=== PATIENT | female | born 1955 | race Caucasian/White ===

== ENCOUNTER 2019-08-11 08:48 | Outpatient (CLI) | payer OTHER, SELFPAY ==
--- NOTE | ~2019-08-11 | US_ITS ---
US breast RT limited 08/11/2019 09:28 Indication: Follow-up left breast mass Procedure: High-resolution left breast ultrasound Comparison: Ultrasound dated 02/09/2019 and 02/03/2019 Findings: At 6:00, 1 cm from the nipple, there is a 3 x 2 x 1 mm hypoechoic mass with circumscribed m argins, parallel orientation, no internal vascularity and no posterior features. This is slightly dec reased in size compared with 02/03/2019 when it measured 4 x 3 x 2 mm. Impression: 1: Slightly decreased size of likely benign right breast mass measuring 3 mm maximum dimension at 6:0 0, 1 cm from the nipple. BI-RADS CATEGORY 3-PROBABLY BENIGN FINDING RECOMMENDATION: Six-month follow-up diagnostic bilateral mammogram and right breast ultrasound recomm ended. Reviewed, dictated and finalized at location [facility]. 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 BI-RADS CATEGORY 3-PROBABLY BENIGN FINDING RECOMMENDATION: Six-month follow-up diagnostic bilateral mammogram and right br east ultrasound recommended.
== END 2019-08-11 08:49 | disposition home or self-care (01) ==
LOC: CHSIMG 08:50
PROVIDERS: PCP Internal Medicine; Visit Provider Internal Medicine
DX: R92.8 Other abnormal and inconclusive findings on diagnostic imaging of breast (principal)
CPT/HCPCS: 76642

== ENCOUNTER 2019-10-15 07:47 | Outpatient (CLI) | payer MEDICARE, OTHER, SELFPAY ==
[2019-10-15 08:02] LABS: Basophils Absolute Auto 0.07 K/mm3 (0.00-0.10); Basophils Percent Auto 1.3 % (0.0-1.0); Eosinophils Absolute Auto 0.38 K/mm3 (0.02-0.50); Eosinophils Percent Auto 6.9 % (1.0-6.0); Hematocrit 40.6 % (35.0-42.0); Hemoglobin 13.3 g/dL (11.7-13.8); Immature Granulocyte Absolute 0.01 K/mm3 (0.00-0.00); Immature Granulocyte Percent A 0.2 % (0.0-0.0); Lymphocytes Absolute Auto 2.39 K/mm3 (1.10-4.50); Lymphocytes Percent Auto 43.3 % (18.0-42.0); Mean Corpuscular HGB Conc 32.8 g/dL (32.0-36.0); Mean Corpuscular Hemoglobin 28.9 pg (27.0-31.0); Mean Corpuscular Volume 88.1 fL (78.0-102.0); Mean Platelet Volume 10.7 fl (9.2-11.8); Monocytes Absolute Auto 0.52 K/mm3 (0.10-0.90); Monocytes Percent Auto 9.4 % (2.0-11.0); Neutrophils Absolute Auto 2.2 K/mm3 (1.7-7.2); Neutrophils Percent Auto 38.9 % (50.0-70.0); Platelet Count Result 231 K/mm3 (150-420); Red Blood Count 4.61 M/mm3 (4.20-5.40); White Blood Count 5.5 K/mm3 (4.8-10.8)
[2019-10-15 08:03] LABS: Add Urine Microscopic? NO; Appearance Urine Clear (Clear); Bilirubin Urine Negative (Negative); Blood Urine Negative (Negative); Color Urine Yellow (Yellow); Glucose Urine UA Negative (Negative); Ketones Urine Negative (Negative); Leukocyte Esterase Ur Negative (Negative); Nitrate Urine Negative (Negative); Protein Urine Negative (Negative); Urobilinogen Urine 0.2 mg/dL (0.2-1.0)
[2019-10-15 08:59] LABS: Alanine Aminotransferase 32 U/L (14-59); Albumin Level 4.1 g/dL (3.4-5.0); Alkaline Phosphatase 114 U/L (46-116); Anion Gap 12.2 mmol/L (7-16); Aspartate Amino Transferase 28 U/L (15-37); Bilirubin,Total 0.4 mg/dL (0.00-1.00); Blood Urea Nitrogen 11 mg/dL (7-18); Calcium 9.2 mg/dL (8.5-10.1); Carbon Dioxide 30 mmol/L (21-32); Chloride 105 mmol/L (98-108); Cholesterol 185 mg/dL (0-200); Estimated Glomerular Filt Rate > 60; Glucose 95 mg/dL (70-99); HDL Direct 49 mg/dL (40-60); LDL Cholesterol Calculated 98 mg/dL (<130); Osmolality Calculated 295 mOsm/kg (285-295); Potassium 4.2 mmol/L (3.5-5.1); Sodium 143 mmol/L (136-145); Thyroid Stimulating Hormone 1.03 uIU/mL (0.36-3.74); Total Protein 7.3 g/dL (6.4-8.2); Triglycerides 188 mg/dL (0-150)
== END 2019-10-15 07:48 | disposition home or self-care (01) ==
LOC: CHSLAB 07:50
PROVIDERS: PCP Internal Medicine; Visit Provider Internal Medicine
DX: E78.5 Hyperlipidemia, unspecified (principal); M19.90 Unspecified osteoarthritis, unspecified site; E03.9 Hypothyroidism, unspecified
CPT/HCPCS: 36415; 80053; 80061; 81003; 84443; 85025

== ENCOUNTER 2020-02-06 15:57 | Outpatient (CLI) | payer MEDICARE, SELFPAY ==
[2020-02-06 16:08] LABS: Basophils Absolute Auto 0.07 K/mm3 (0.00-0.10); Basophils Percent Auto 1.1 % (0.0-1.0); Eosinophils Absolute Auto 0.29 K/mm3 (0.02-0.50); Eosinophils Percent Auto 4.4 % (1.0-6.0); Hematocrit 40.2 % (35.0-42.0); Hemoglobin 13.3 g/dL (11.7-13.8); Immature Granulocyte Absolute 0.03 K/mm3 (0.00-0.00); Immature Granulocyte Percent A 0.5 % (0.0-0.0); Lymphocytes Absolute Auto 2.94 K/mm3 (1.10-4.50); Lymphocytes Percent Auto 44.9 % (18.0-42.0); Mean Corpuscular HGB Conc 33.1 g/dL (32.0-36.0); Mean Corpuscular Volume 87.8 fL (78.0-102.0); Mean Platelet Volume 10.9 fl (9.2-11.8); Monocytes Absolute Auto 0.57 K/mm3 (0.10-0.90); Monocytes Percent Auto 8.7 % (2.0-11.0); Neutrophils Absolute Auto 2.7 K/mm3 (1.7-7.2); Neutrophils Percent Auto 40.4 % (50.0-70.0); Platelet Count Result 224 K/mm3 (150-420); Red Blood Count 4.58 M/mm3 (4.20-5.40); Red Cell Distribution Width 11.9 % (11.6-14.4); White Blood Count 6.6 K/mm3 (4.8-10.8)
[2020-02-06 16:29] LABS: Alanine Aminotransferase 39 U/L (14-59); Albumin Level 4.5 g/dL (3.4-5.0); Alkaline Phosphatase 124 U/L (46-116); Anion Gap 10 mmol/L (8-16); Aspartate Amino Transferase 29 U/L (15-37); Bilirubin,Total 0.3 mg/dL (0.00-1.00); Blood Urea Nitrogen 12 mg/dL (7-18); Calcium 9.2 mg/dL (8.5-10.1); Carbon Dioxide 29 mmol/L (21-32); Chloride 103 mmol/L (98-108); Estimated Glomerular Filt Rate 58; Glucose 108 mg/dL (70-99); Osmolality Calculated 294 mOsm/kg (285-295); Potassium 3.9 mmol/L (3.5-5.1); Sodium 142 mmol/L (136-145); Total Protein 7.9 g/dL (6.4-8.2)
== END 2020-02-06 15:58 | disposition home or self-care (01) ==
LOC: CHSLAB 15:59
PROVIDERS: PCP Internal Medicine; Visit Provider Internal Medicine
DX: R21 Rash and other nonspecific skin eruption (principal); D72.820 Lymphocytosis (symptomatic)
CPT/HCPCS: 36415; 80053; 85025

== ENCOUNTER 2020-09-13 12:15 | Outpatient (CLI) | payer MEDICARE, SELFPAY ==
[2020-09-13 12:30] LABS: Basophils Absolute Auto 0.06 K/mm3 (0.00-0.10); Basophils Percent Auto 0.9 % (0.0-1.0); Eosinophils Absolute Auto 0.14 K/mm3 (0.02-0.50); Eosinophils Percent Auto 2.1 % (1.0-6.0); Hematocrit 41.1 % (35.0-42.0); Hemoglobin 13.7 g/dL (11.7-13.8); Immature Granulocyte Absolute 0.04 K/mm3 (0.00-0.00); Immature Granulocyte Percent A 0.6 % (0.0-0.0); Lymphocytes Absolute Auto 2.78 K/mm3 (1.10-4.50); Lymphocytes Percent Auto 41.4 % (18.0-42.0); Mean Corpuscular HGB Conc 33.3 g/dL (32.0-36.0); Mean Corpuscular Hemoglobin 29.3 pg (27.0-31.0); Mean Platelet Volume 10.7 fl (9.2-11.8); Monocytes Percent Auto 8.9 % (2.0-11.0); Neutrophils Absolute Auto 3.1 K/mm3 (1.7-7.2); Neutrophils Percent Auto 46.1 % (50.0-70.0); Platelet Count Result 228 K/mm3 (150-420); Red Blood Count 4.67 M/mm3 (4.20-5.40); Red Cell Distribution Width 12.2 % (11.6-14.4); White Blood Count 6.7 K/mm3 (4.8-10.8)
[2020-09-13 12:32] LABS: Add Urine Microscopic? NO; Appearance Urine Clear (Clear); Bilirubin Urine Negative (Negative); Blood Urine Negative (Negative); Color Urine Yellow (Yellow); Glucose Urine UA Negative (Negative); Ketones Urine Negative (Negative); Leukocyte Esterase Ur Negative (Negative); Nitrate Urine Negative (Negative); Protein Urine Negative (Negative); Specific Grav Ur <= 1.005 (1.010-1.020); Urobilinogen Urine 0.2 mg/dL (0.2-1.0)
--- NOTE | 2020-09-13 12:50 | ECG_ITS ---
Measurements Intervals [place] Rate: 53 P: 77 VA: 188 QRS: 82 QRSD: 89 T: 57 QT: 403 QTc: 381 Interpretive Statements SINUS BRADYCARDIA MINIMAL Q WAVES- INFERIOR LEADS BORDERLINE ST-T WAVE ABNORMALITY- DIFFUSE LEADS BORDERLINE ECG Electronically Signed On 09-13-2020 13:42:32 CDT by Trevor Apple D.O.
[2020-09-13 12:57] LABS: Alanine Aminotransferase 50 U/L (14-59); Albumin Level 4.6 g/dL (3.4-5.0); Alkaline Phosphatase 125 U/L (46-116); Amylase 54 U/L (25-115); Anion Gap 6 mmol/L (8-16); Aspartate Amino Transferase 32 U/L (15-37); Bilirubin,Total 0.6 mg/dL (0.00-1.00); Blood Urea Nitrogen 9 mg/dL (7-18); Calcium 10.3 mg/dL (8.5-10.1); Carbon Dioxide 30 mmol/L (21-32); Chloride 101 mmol/L (98-108); Creatine Kinase 166 U/L (26-192); Estimated Glomerular Filt Rate > 60; Glucose 109 mg/dL (70-99); Lipase 135 U/L (73-393); Osmolality Calculated 283 mOsm/kg (285-295); Potassium 3.9 mmol/L (3.5-5.1); Sodium 137 mmol/L (136-145); Total Protein 8.3 g/dL (6.4-8.2); Troponin I 6.8 ng/L (0.00-60.4)
== END 2020-09-13 12:16 | disposition home or self-care (01) ==
LOC: CHSLAB 12:18
PROVIDERS: PCP Internal Medicine; Visit Provider Internal Medicine
DX: R10.9 Unspecified abdominal pain (principal); E03.9 Hypothyroidism, unspecified
CPT/HCPCS: 36415; 80053; 81003; 82150; 82550; 82553; 83690; 84443; 84484; 85025; 93005

== ENCOUNTER 2020-09-14 11:37 | Outpatient (CLI) | payer MEDICARE, SELFPAY ==
[2020-09-17 05:55] LABS: Ionized Calcium 5.3 mg/dL (4.8-5.6)
[2020-09-17 11:14] LABS: Parathyroid Intact 49 pg/mL (14-64)
== END 2020-09-14 11:38 | disposition home or self-care (01) ==
LOC: CHSLAB 11:40
PROVIDERS: PCP Internal Medicine; Visit Provider Internal Medicine
DX: E83.52 Hypercalcemia (principal)
CPT/HCPCS: 36415; 82330; 83970; 84100

== ENCOUNTER 2020-10-18 09:25 | Outpatient (CLI) | payer MEDICARE, SELFPAY ==
[2020-10-18 09:35] LABS: Basophils Absolute Auto 0.06 K/mm3 (0.00-0.10); Basophils Percent Auto 1.2 % (0.0-1.0); Eosinophils Absolute Auto 0.24 K/mm3 (0.02-0.50); Eosinophils Percent Auto 4.7 % (1.0-6.0); Hematocrit 39.5 % (35.0-42.0); Hemoglobin 13.3 g/dL (11.7-13.8); Immature Granulocyte Absolute 0.01 K/mm3 (0.00-0.00); Immature Granulocyte Percent A 0.2 % (0.0-0.0); Lymphocytes Absolute Auto 1.96 K/mm3 (1.10-4.50); Lymphocytes Percent Auto 38.7 % (18.0-42.0); Mean Corpuscular HGB Conc 33.7 g/dL (32.0-36.0); Mean Corpuscular Hemoglobin 29.2 pg (27.0-31.0); Mean Corpuscular Volume 86.8 fL (78.0-102.0); Mean Platelet Volume 10.8 fl (9.2-11.8); Monocytes Absolute Auto 0.46 K/mm3 (0.10-0.90); Monocytes Percent Auto 9.1 % (2.0-11.0); Neutrophils Absolute Auto 2.3 K/mm3 (1.7-7.2); Neutrophils Percent Auto 46.1 % (50.0-70.0); Platelet Count Result 228 K/mm3 (150-420); Red Blood Count 4.55 M/mm3 (4.20-5.40); White Blood Count 5.1 K/mm3 (4.8-10.8)
[2020-10-18 10:30] LABS: Alanine Aminotransferase 36 U/L (14-59); Albumin Level 4.1 g/dL (3.4-5.0); Alkaline Phosphatase 126 U/L (46-116); Amylase 44 U/L (25-115); Anion Gap 6 mmol/L (8-16); Aspartate Amino Transferase 24 U/L (15-37); Bilirubin,Total 0.4 mg/dL (0.00-1.00); Blood Urea Nitrogen 12 mg/dL (7-18); Calcium 9.5 mg/dL (8.5-10.1); Carbon Dioxide 30 mmol/L (21-32); Chloride 104 mmol/L (98-108); Estimated Glomerular Filt Rate > 60; Glucose 104 mg/dL (70-99); Lipase 96 U/L (73-393); Osmolality Calculated 289 mOsm/kg (285-295); Sodium 140 mmol/L (136-145); Thyroid Stimulating Hormone 0.52 uIU/mL (0.36-3.74); Total Protein 7.3 g/dL (6.4-8.2)
== END 2020-10-18 09:26 | disposition home or self-care (01) ==
LOC: CHSLAB 09:28
PROVIDERS: PCP Internal Medicine; Visit Provider Internal Medicine
DX: R10.9 Unspecified abdominal pain (principal); E03.9 Hypothyroidism, unspecified
CPT/HCPCS: 36415; 80053; 82150; 83690; 84443; 85025

== ENCOUNTER 2020-10-19 08:29 | Outpatient (CLI) | payer MEDICARE, SELFPAY ==
--- NOTE | ~2020-10-19 | CT_ITS ---
EXAMINATION: CT abdomen pelvis w con DATE: 10/19/2020 09:48 INDICATION: Epigastric abdominal pain for 2 months TECHNIQUE: Computed tomography (CT) of the abdomen and pelvis was performed with 100 cc Omnipaque 350 intravenous contrast. Automated exposure control and iterative reconstruction technique were employe d. Exam dose: 283.52 mGy-cm total exam DLP. COMPARISON: 03/17/2019 radionuclide hepatobiliary scan 03/10/2019 gallbladder ultrasound 08/22/2016 CT abdomen pelvis FINDINGS: There are several posteromedial right lower lobe pleura-based soft tissue densities measuri ng under 4 mm. There is a pleural-based 1.5 cm nodular density with central calcification in the posterior basilar r ight lower lobe, likely a calcified pulmonary granuloma. There is branching soft tissue thickening in the posteromedial left lower lobe which may represent fo antonio bronchiectasis with inspissated secretions. The lower lung zones are otherwise clear. Normal heart size. No pericardial or pleural effusion. Very small sliding hiatal hernia. Diffuse hepatic steatosis. Status post cholecystectomy. No hepatic, splenic, pancreatic, adrenal or renal space-occupying mass lesion is detected. Normal caliber of the abdominal aorta. No intraperitoneal or retroperitoneal or pelvic mass lesion or adenopathy or ascites. The urinary bladder is unremarkable. Status post hysterectomy. Normal appendix. There is a prominent amount fecal material within the colon but no bowel obstruction, bowel wall thic kening, pneumatosis or intraperitoneal free air is detected. Diffuse osteopenia. Mild anterior wedge compression fracture deformity of L1. Moderate anterior wedge compression fractur e deformity of L3. Minimal grade 1 anterolisthesis at L4-5 due to degenerative change at the apophyseal joints. IMPRESSION: Focal inspissated bronchiectasis, left lower lobe Probable 1.5 cm centrally calcified right lower lobe pulmonary granuloma Very small sliding hiatal hernia Hepatic steatosis Status post cholecystectomy Status post hysterectomy Normal appendix Compression fracture deformities of L1 and L3, stable since 08/22/2016 Reviewed, dictated and finalized at [facility]. Reviewed, dictated and finalized at location A.
== END 2020-10-19 08:30 | disposition home or self-care (01) ==
LOC: CHSIMG 08:31
PROVIDERS: PCP Internal Medicine; Visit Provider Internal Medicine
DX: R10.9 Unspecified abdominal pain (principal)
CPT/HCPCS: 74177; Q9967

== ENCOUNTER 2021-01-17 02:39 | Day surgery (SDC) | payer MEDICARE, SELFPAY ==
[2021-01-04 13:43] VITALS: BMI 25.4
[2021-01-17 07:14] VITALS: BP 151/78; PULSE 78; RESP 18; TEMP 36.1; O2SAT 99; BMI 26.4
[2021-01-17] MEDS: LACTATED RINGERS 1,000 ML 150 ML IV CONT (07:30)
--- NOTE | 2021-01-17 07:55 | WPDANESEPPF ---
Anes - Initial Pre Proc Eval Procedure: Operation Date: 01/17/21 08:30 Proposed Procedures p Esophagogastroduodenoscopy - Hugo Cortes DO Date/Time: 01/17/21 07:55 Surgeon: Hugo Cortes DO Pre Op Diagnosis: epigastric pain Patient Data Age: 65 Gender: F Height: 1.52 m Weight: 61.4 kg Last Vital Signs Temp 36.1 C L 01/17/21 07:14 Pulse 78 01/17/21 07:14 Resp 18 01/17/21 07:14 BP 151/78 H 01/17/21 07:14 Pulse Ox 99 01/17/21 07:14 Allergies Allergy/AdvReac Type Severity Reaction Status Date / Time risedronate sodium Allergy Rash Verified 01/17/21 07:05 [From Actonel] Home Medications Medication Instructions Recorded Confirmed Type ascorbic acid (vitamin C) 500 mg 500 mg PO DAILY 04/11/19 01/17/21 History tablet levothyroxine 88 mcg capsule 88 mcg PO HS 04/11/19 01/17/21 History meloxicam 15 mg tablet 15 mg PO DAILY PRN 04/11/19 01/17/21 History pantoprazole 40 mg tablet,delayed 40 mg PO QAM PRN 04/11/19 01/17/21 History release propylene glycol 0.6 % eye drops 1 drop EACH EYE HS 04/11/19 01/17/21 History calcium carbonate 600 mg calcium 600 mg PO DAILY 04/12/19 01/17/21 History (1,500 mg) tablet pravastatin 10 mg tablet 10 mg PO DAILY 04/12/19 01/17/21 History multivitamin 1 tablet PO DAILY 04/26/19 01/17/21 History vitamin E 400 unit PO DAILY 04/26/19 01/17/21 History Patient hx anesthesia problems: none Family hx anesthesia problems: none PMFSH Past Medical History Medical History B12 deficiency Cervical radiculitis right Corneal abrasion right Disorder of thyroid gland Hypertriglyceridemia Hypothyroidism Osteoporosis Surgical History Surgical History H/O section H/O colonoscopy H/O: hysterectomy Hx of tonsillectomy Family History Family History Mother Family history of elevated blood lipids Family history of atrial fibrillation Hyperlipidemia Atrial fibrillation Unknown Leukemia Other Diabetes mellitus Family history of malignant neoplasm Social History Social History Smoking status: Former smoker Tobacco type: cigarettes Second hand tobacco smoke exposure: No Smoking end date: 06/08/09 Alcohol intake: never Alcohol use details: 1 glass of consumed rarely Substance use: never Substance use type: does not use Living arrangements: alone Spiritual care concerns: No Anes - Eval Final PreProcedure Day of Procedure 01/17/21 07:55 Patient weight: overweight Heart: regular rate and rhythm Lungs: clear to auscultation Airway: Mallampati scale class II Neurological: alert and oriented Last oral intake: >/= 8 hours ASA classification: II Emergent: no Anesthetic plan: proceed Anesthesia type and monitoring: general GIVS and standard monitoring Informed Consent: The patient's anesthetic plan and its attendant risks and benefits were discussed with the patient/family/POA. Questions were solicited and answers provided to the satisfaction of the patient/family/POA.
--- NOTE | 2021-01-17 08:59 | PM.IMHP ---
H&P: HPI History of Present Illness Date/Time: 01/17/21 08:59 Chief Complaint: upper abdominal pain Narrative: this is a 65-year-old woman who presents with upper abdominal pain and pressure for the past 6 months. She denies any nausea or vomiting. She did recently start taking an antihistamine which she feels like has improved her symptoms. Prior to that, nothing seemed to be helping, even with taking pantoprazole. Review of Systems Review of Systems: All systems reviewed & are unremarkable except as noted in HPI and below Eyes: Eyes: Denies change in vision ENT: Denies hearing loss, Denies neck pain and Denies sore throat Cardiovascular: Cardiovascular: Denies chest pain and Denies dyspnea Respiratory: Respiratory: Denies cough, Denies dyspnea and Denies wheezing Genitourinary: Genitourinary: Denies hematuria and Denies dysuria Musculoskeletal: Musculoskeletal: Denies arthralgias, Denies joint swelling and Denies neck pain Allergic/Immunologic: Allergic/Immunologic: Denies wheezing [facility] Past Medical History Medical History (Updated 01/17/21 @ 09:00 by Hugo Cortes DO) B12 deficiency Cervical radiculitis right Corneal abrasion right Disorder of thyroid gland Hypertriglyceridemia Hypothyroidism Osteoporosis Surgical History Surgical History H/O section H/O colonoscopy H/O: hysterectomy Hx of tonsillectomy Family History Family History Mother Family history of elevated blood lipids Family history of atrial fibrillation Hyperlipidemia Atrial fibrillation Unknown Leukemia Other Diabetes mellitus Family history of malignant neoplasm Social History Social History Smoking status: Former smoker Tobacco type: cigarettes Second hand tobacco smoke exposure: No Smoking end date: 06/08/09 Alcohol intake: never Alcohol use details: 1 glass of consumed rarely Substance use: never Substance use type: does not use Living arrangements: alone Spiritual care concerns: No Meds Home Medications and Allergies Home Medications Medication Instructions Recorded Confirmed Type ascorbic acid (vitamin C) 500 mg 500 mg PO DAILY 04/11/19 01/17/21 History tablet levothyroxine 88 mcg capsule 88 mcg PO HS 04/11/19 01/17/21 History meloxicam 15 mg tablet 15 mg PO DAILY PRN 04/11/19 01/17/21 History pantoprazole 40 mg tablet,delayed 40 mg PO QAM PRN 04/11/19 01/17/21 History release propylene glycol 0.6 % eye drops 1 drop EACH EYE HS 04/11/19 01/17/21 History calcium carbonate 600 mg calcium 600 mg PO DAILY 04/12/19 01/17/21 History (1,500 mg) tablet pravastatin 10 mg tablet 10 mg PO DAILY 04/12/19 01/17/21 History multivitamin 1 tablet PO DAILY 04/26/19 01/17/21 History vitamin E 400 unit PO DAILY 04/26/19 01/17/21 History Allergies Allergy/AdvReac Type Severity Reaction Status Date / Time risedronate sodium Allergy Rash Verified 01/17/21 07:05 [From Actonel] Vital Signs Vital Signs - 24 hr 01/17/21 07:14 Temperature 36.1 C L Pulse Rate 78 Respiratory Rate 18 Blood Pressure 151/78 H Pulse Oximetry 99 Exam Const: General: alert; No acute distress Orientation/consciousness: patient oriented x3 Limitations: no limitations HENMT: Head: normocephalic and atraumatic Ears: hearing grossly normal bilaterally General nose exam: Normal external nose present and Normal nares present Mouth: Yes Normal oral and palatal mucosa present and Yes moist mucous membranes Eyes: General: appearance normal, both eyes and all related structures Conjunctivae: conjunctivae normal Sclera: sclerae normal Pupils: Equal, round and reactive pupils present EOM: EOMs intact bilaterally Neck: Neck: normal visual inspection, full ROM, no lymphadenopathy, supple and no JVD Lymphatic: no lymphad
[2021-01-17] MEDS: BENZOCAINE (*SP) 60 ML SPRAY CAN (HURRICAINE) 1 SPRAY MUCOUS MEM (09:02)
[2021-01-17 09:12] VITALS: BP 115/68; PULSE 68; RESP 18; O2SAT 99
[2021-01-17 09:22] VITALS: BP 107/67; PULSE 62; RESP 20; O2SAT 99
[2021-01-17 09:32] VITALS: BP 130/80; PULSE 66; RESP 20; O2SAT 99
== END 2021-01-17 09:50 | disposition home or self-care (01) ==
PROVIDERS: PCP Internal Medicine; Visit Provider Surgery
PROC: 0DJ08ZZ Inspection of Upper Intestinal Tract, Via Natural or Artificial Opening Endoscopic (ICD-10-PCS; CPT 43235; principal; 2021-01-17 08:30)
DX: R10.13 Epigastric pain (principal); K31.89 Other diseases of stomach and duodenum; E03.9 Hypothyroidism, unspecified; E78.1 Pure hyperglyceridemia; M81.0 Age-related osteoporosis without current pathological fracture; E53.8 Deficiency of other specified B group vitamins; E07.9 Disorder of thyroid, unspecified; Z87.891 Personal history of nicotine dependence
CPT/HCPCS: 43239; 88305; J2704; J7120

== ENCOUNTER 2021-10-24 07:59 | Outpatient (CLI) | payer MEDICARE, SELFPAY ==
[2021-10-24 08:20] LABS: Add Urine Microscopic? NO; Appearance Urine Clear (Clear); Basophils Absolute Auto 0.07 K/mm3 (0.00-0.10); Basophils Percent Auto 1.4 % (0.0-1.0); Bilirubin Urine Negative (Negative); Blood Urine Negative (Negative); Color Urine Yellow (Yellow); Eosinophils Absolute Auto 0.29 K/mm3 (0.02-0.50); Eosinophils Percent Auto 5.8 % (1.0-6.0); Glucose Urine UA Negative (Negative); Hematocrit 40.7 % (35.0-42.0); Hemoglobin 13.5 g/dL (11.7-13.8); Immature Granulocyte Absolute 0.02 K/mm3 (0.00-0.00); Immature Granulocyte Percent A 0.4 % (0.0-0.0); Ketones Urine Negative (Negative); Leukocyte Esterase Ur Negative (Negative); Lymphocytes Absolute Auto 2.15 K/mm3 (1.10-4.50); Lymphocytes Percent Auto 43.2 % (18.0-42.0); Mean Corpuscular HGB Conc 33.2 g/dL (32.0-36.0); Mean Corpuscular Hemoglobin 29.5 pg (27.0-31.0); Mean Corpuscular Volume 89.1 fL (78.0-102.0); Monocytes Absolute Auto 0.44 K/mm3 (0.10-0.90); Monocytes Percent Auto 8.8 % (2.0-11.0); Neutrophils Percent Auto 40.4 % (50.0-70.0); Nitrate Urine Negative (Negative); Platelet Count Result 227 K/mm3 (150-420); Protein Urine Negative (Negative); Red Blood Count 4.57 M/mm3 (4.20-5.40); Urobilinogen Urine 0.2 mg/dL (0.2-1.0); pH Urine 5.5 (5.0-8.0)
[2021-10-24 08:58] LABS: Alanine Aminotransferase 31 U/L (14-59); Alkaline Phosphatase 118 U/L (46-116); Anion Gap 3 mmol/L (8-16); Aspartate Amino Transferase 17 U/L (15-37); Bilirubin,Total 0.4 mg/dL (0.00-1.00); Blood Urea Nitrogen 14 mg/dL (7-18); Calcium 9.2 mg/dL (8.5-10.1); Carbon Dioxide 31 mmol/L (21-32); Chloride 106 mmol/L (98-108); Cholesterol 177 mg/dL (0-200); Estimated Glomerular Filt Rate > 60; Glucose 97 mg/dL (70-99); HDL Direct 45 mg/dL (40-60); LDL Cholesterol Calculated 72 mg/dL (<130); Osmolality Calculated 290 mOsm/kg (285-295); Potassium 4.2 mmol/L (3.5-5.1); Sodium 140 mmol/L (136-145); Thyroid Stimulating Hormone 0.38 uIU/mL (0.36-3.74); Total Protein 7.4 g/dL (6.4-8.2); Triglycerides 302 mg/dL (0-150)
== END 2021-10-24 08:00 | disposition home or self-care (01) ==
PROVIDERS: PCP Internal Medicine; Visit Provider Internal Medicine
DX: E63.9 Nutritional deficiency, unspecified (principal); E78.5 Hyperlipidemia, unspecified
CPT/HCPCS: 36415; 80053; 80061; 81003; 84443; 85025

== ENCOUNTER 2021-11-07 08:17 | Outpatient (CLI) | payer MEDICARE, SELFPAY ==
--- NOTE | ~2021-11-07 | MMUS_ITS ---
EXAMINATION: MM diagnostic tung BI w chilo, US breast RT limited HISTORY: Likely benign right breast mass measuring 3 mm maximal dimension reported at 6:00 1 cm from nipple on 08/11/2019 limited right breast ultrasound TECHNIQUE: ML, MLO and CC 3-D tomosynthesis images of both breasts were performed and synthetic 2-D i mages were generated. CAD analysis was submitted and interpreted. High resolution targeted 6:00 left breast ultrasound was performed. COMPARISON: 08/11/2019 limited right breast ultrasound 02/09/2019 right breast ultrasound 01/2019 diagnostic right mammogram and right breast ultrasound 01/31/2019 bilateral screening mammogram BREAST PARENCHYMAL COMPOSITION: There are scattered areas of fibroglandular density. FINDINGS: MAMMOGRAPHIC FINDINGS: Stable small low-density circumscribed opacities consistent with benign intramammary lymph nodes are noted in the outer mid and outer upper right breast. No suspicious mass, architectural distortion, malignant calcification, skin thickening or retraction or significant new or developing density of either breast is detected. ULTRASOUND: Stable circumscribed parallel hypoechoic approximately 1.4 x 3 mm mass at 6:00 1 cm from the nipple, stable since 08/11/2019. IMPRESSION: 1. No mammographic evidence of malignancy 2. Routine mammographic screening is recommended BI-RADS Category 2: Benign finding(s). Reviewed, dictated and finalized at location A. IMPRESSION: 1. No mammographic evidence of malignancy 2. Routine mammographic screening is recommended BI-RADS Category 2: Benign finding(s).
--- NOTE | ~2021-11-07 | DEXA_ITS ---
Bone Density Report Name: CINTHIA WARREN Age: 66 Sex: Female Ethnicity: White Date of : 1955 Indication: postmenopausal; screening for osteoporosis; prior fracture; hysterectomy; Referring Provider: Torey Xiong Study: Bone densitometry was performed. Exam Date: November 07, 2021 Accession number: [id number] Bone Density: Region BMD T-score Z-score Classification AP Spine(L1-L4) 0.757 -2.6 -0.7 Osteoporosis Femoral Neck (Left) 0.413 -3.9 -2.3 Osteoporosis Total Hip (Left) 0.632 -2.5 -1.2 Osteoporosis Femoral Neck (Right) 0.498 -3.2 -1.5 Osteoporosis Total Hip (Right) 0.641 -2.5 -1.1 Osteoporosis Femoral Neck Mean 0.455 -3.5 -1.9 Osteoporosis Total Hip Mean 0.636 -2.5 -1.2 Osteoporosis World Health Organization criteria for BMD impression classify patients as: Normal (T-score at or above -1.0), Osteopenia (T-score between -1.0 and -2.5), or Osteoporosis (T-score at or below -2.5). 10-year Fracture Risk: FRAX not reported because: Some T-score for Spine Total or Hip Total or Femoral Neck at or below -2.5 Prior hip or vertebral fracture Clinical Information Provided by Patient: Have had a previous hip or vertebral fracture Has had a low trauma fracture Has used the following medications: Actonel (i.e. risedronate), Boniva (i.e. ibandronate) Has the following medical conditions: Hysterectomy Patient maximum height was 61 Menopause Age: 39 No regular weight bearing exercise Onset of menses at age 15 Number of children 1 Impression: The patient has established osteoporosis, based on the Left Femoral Neck T-score and the existence of a prior fracture. The patient has risk factors, including: previous fracture. Discussion: HIGH RISK OF FRACTURE. BONE DENSITY IS UNDESIRABLY LOW AT ONE OR MORE SKELETAL SITES, CONSISTENT WITH POSTMENOPAUSAL OSTEOPOROSIS. This patient's lowest T-score, in a patient who has previously fractured, meets the World Health Organization's (WHO) criteria for severe osteoporosis. In untreated patients, the risk of osteoporotic fracture increases approximately two-fold for each 1.0 SD decrease in T-score. Low bone density is not the only risk factor for fracture; also consider factors such as patient's age, frailty or poor health, risk of falling, risk of injury, previous osteoporotic fracture, family history of osteoporosis, cigarette smoking, low body weight, etc. Not everyone with low bone mineral density has osteoporosis; osteomalacia and other metabolic bone disorders should also be considered. Patients who have osteoporosis should be evaluated for specific diseases and conditions (secondary causes) that may cause or contribute to bone loss. The [place] [employer]ocrinologists (AACE) and National Osteoporosis Foundation (NOF) recommend
--- NOTE | ~2021-11-07 | XR_ITS ---
EXAMINATION: XR ankle RT min 3V, XR foot RT min 3V DATE: 11/07/2021 09:23 INDICATION: Lateral right ankle pain. TECHNIQUE: 1. Anteroposterior, mortise, additional oblique and lateral view of the right ankle were obtained. 2. Dorsoplantar, two oblique and lateral views of the right foot were obtained. COMPARISON: None. FINDINGS: Alignment of the right foot and ankle is normal. No fracture or osteochondral lesion. Mild polyarticu lar osteoarthritis at the calcaneocuboid, first metatarsophalangeal and several interphalangeal joint s. No ankle joint effusion. Small plantar calcaneal spur. The soft tissues are unremarkable. IMPRESSION: 1. 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 No acute osseous abnormality. Reviewed, dictated and finalized at location B. IMPRESSION: 1. 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 No acute osseous abnorm ality.
== END 2021-11-07 08:18 | disposition home or self-care (01) ==
LOC: CHSIMG 08:19
PROVIDERS: PCP Internal Medicine; Visit Provider Internal Medicine
DX: M81.0 Age-related osteoporosis without current pathological fracture (principal); R92.8 Other abnormal and inconclusive findings on diagnostic imaging of breast; M25.571 Pain in right ankle and joints of right foot
CPT/HCPCS: 73610; 73630; 76642; 77062; 77066; 77080; G0279

== ENCOUNTER 2022-01-09 13:39 | Outpatient (CLI) | payer MEDICARE, SELFPAY ==
--- NOTE | 2022-01-09 13:49 | ECG_ITS ---
Measurements Intervals [place] Rate: 65 P: 72 MI: 176 QRS: 75 QRSD: 91 T: 61 QT: 410 QTc: 427 Interpretive Statements SINUS RHYTHM NONSPECIFIC T-WAVE ABNORMALITY BORDERLINE ECG COMPARED TO ECG 09/13/2020 12:47:39 HEART RATE HAS INCREASED Electronically Signed On 01-09-2022 15:21:04 CDT by Jhon Garcia M.D.
== END 2022-01-09 13:40 | disposition home or self-care (01) ==
LOC: CHSIMG 13:42
PROVIDERS: PCP Internal Medicine; Visit Provider Internal Medicine Cardiovascular Disease
DX: R07.9 Chest pain, unspecified (principal)
CPT/HCPCS: 93005

== ENCOUNTER 2022-01-27 11:47 | Outpatient (CLI) | payer MEDICARE, SELFPAY ==
--- NOTE | 2022-01-27 11:48 | EST_ITS ---
Patient Info Name: Mago Leonard Age: 66 years : 1955 Gender: Female Ht: 60 in Wt: 139 lbs BSA: 1.65 m2 Exam Date: 01/27/2022 12:11 PM Exam Location: [facility] Patient Status: Outpatient Admit Date: 01/27/2022 Staff Ordering Physician: Trevor Apple DO Attending Provider: Trevor Apple DO Exam Type: CA stress test treadmill Summary 1. 1. Negative Hipolito exercise stress test for ischemic ST changes by ECG criteria. 2. 2. Reduced functional capacity, achieving 8.9 METs of workload. 3. 3. Baseline hypertension. 4. 4. Appropriate HR response to exercise. 5. 5. Appropriate HR recovery at 1 minute post exercise. 6. 6. No imaging with stress testing. 7. 7. Patient informed of the above results. Protocol: [place] Stress ECG Details Stage: REST Duration (min): 1 min : 15 sec Speed (mph): 0.0 Grade (%): 0 HR (bpm): 70 SBP (mmHg): 151 DBP (mmHg): 94 METS: --- Stage: REST Duration (min): 19 min : 54 sec Speed (mph): 0.0 Grade (%): 0 HR (bpm): 74 SBP (mmHg): 151 DBP (mmHg): 94 METS: --- Stage: STAGE 1 Duration (min): 1 min : 0 sec Speed (mph): 1.7 Grade (%): 10 HR (bpm): 87 SBP (mmHg): 151 DBP (mmHg): 94 METS: --- Stage: STAGE 1 Duration (min): 2 min : 0 sec Speed (mph): 1.7 Grade (%): 10 HR (bpm): 100 SBP (mmHg): 151 DBP (mmHg): 94 METS: --- Stage: STAGE 1 Duration (min): 3 min : 0 sec Speed (mph): 1.7 Grade (%): 10 HR (bpm): 102 SBP (mmHg): 171 DBP (mmHg): 75 METS: --- Stage: STAGE 2 Duration (min): 1 min : 0 sec Speed (mph): 2.5 Grade (%): 12 HR (bpm): 112 SBP (mmHg): 171 DBP (mmHg): 75 METS: --- Stage: STAGE 2 Duration (min): 2 min : 0 sec Speed (mph): 2.5 Grade (%): 12 HR (bpm): 119 SBP (mmHg): 171 DBP (mmHg): 75 METS: --- Stage: STAGE 2 Duration (min): 3 min : 0 sec Speed (mph): 2.5 Grade (%): 12 HR (bpm): 124 SBP (mmHg): 171 DBP (mmHg): 75 METS: --- Stage: STAGE 3 Duration (min): 1 min : 0 sec Speed (mph): 3.4 Grade (%): 14 HR (bpm): 131 SBP (mmHg): 171 DBP (mmHg): 75 METS: --- Stage: STAGE 3 Duration (min): 1 min : 0 sec Speed (mph): 3.4 Grade (%): 14 HR (bpm): 131 SBP (mmHg): 171 DBP (mmHg): 75 METS: --- Stage: RECOVERY Duration (min): 0 min : 59 sec Speed (mph): 0.0 Grade (%): 0 HR (bpm): 113 SBP (mmHg): 171 DBP (mmHg): 75 METS: --- Stage: RECOVERY Duration (min): 1 min : 59 sec Speed (mph): 0.0 Grade (%): 0 HR (bpm): 92 SBP (mmHg): 185 DBP (mmHg): 75 METS: --- Stage: RECOVERY Duration (min): 2 min : 59 sec Speed (mph): 0.0 Grade (%): 0 HR (bpm): 80 SBP (mmHg): 185 DBP (mmHg): 75 METS: --- Stage: RECOVERY Duration
== END 2022-01-27 11:48 | disposition home or self-care (01) ==
LOC: CHSCARD 11:48
PROVIDERS: PCP Internal Medicine; Visit Provider Internal Medicine Cardiovascular Disease
DX: R07.9 Chest pain, unspecified (principal)
CPT/HCPCS: 93017

== ENCOUNTER 2022-02-26 13:48 | Emergency (ER) | payer MEDICARE, SELFPAY ==
--- NOTE | ~2022-02-26 | CT_ITS ---
. EXAMINATION: CT soft tiss nk chst ab pel wo DATE: 02/26/2022 15:01 INDICATION: Dysphagia. Throat swelling. Allergic reaction. TECHNIQUE: Computed tomography (CT) of the neck, chest, abdomen, and pelvis was performed without int ravenous contrast. Automated exposure control and iterative reconstruction technique were employed. T he dose-length product was 1182.66 mGy-cm. COMPARISON: CT abdomen and pelvis 10/19/2020 FINDINGS: NECK CT: There are no pathologically enlarged lymph nodes. The pharynx and larynx are unremarkable. There is m ild mucosal thickening in the ethmoid sinuses. The mastoid air cells are normal. There is severe cerv ical spondylosis. CHEST CT: There is mild emphysema. There is mild scarring at the lung apices. A nodule in right lower lobe with central calcifications consistent with old granulomatous disease. There is a chronic bronchocele in left lower lobe. There are a few scattered nodules measuring up to 4 mm, likely benign. No pleural ef fusion. No pleural effusion. The heart size is normal. No pericardial effusion. There is mild thoraci c spondylosis. ABDOMEN/PELVIS CT: The liver and spleen are normal. There are changes of cholecystectomy. The pancreas, adrenal glands, and kidneys are normal. There is no urolithiasis. There are no dilated loops of bowel. The appendix i s normal. There are no pathologically enlarged lymph nodes. There is no free intraperitoneal fluid. T here is mild lumbar spondylosis. There is a chronic burst fracture of L3. There is a chronic compress ion fracture of L5. There is a Schmorl's node of L1 superior endplate. IMPRESSION: 1. Normal pharynx and larynx. 2. Mild emphysema. Reviewed, dictated and finalized at location A.
[2022-02-26 13:48] VITALS: BP 161/93; PULSE 58; RESP 20; TEMP 36.3; O2SAT 100
[2022-02-26 13:54] VITALS: BP 161/93; PULSE 57; RESP 14; O2SAT 100
[2022-02-26 13:55] VITALS: TEMP 36.3
--- NOTE | 2022-02-26 14:17 | ECG_ITS ---
Measurements Intervals [place] Rate: 52 P: 77 MA: 198 QRS: 76 QRSD: 91 T: 78 QT: 468 QTc: 436 Interpretive Statements SINUS BRADYCARDIA BASELINE ARTIFACT- I, II, III, AVR, AVL, AVF, V1, V4 BORDERLINE ECG COMPARED TO ECG 01/09/2022 14:00:21 HEART RATE HAS DECREASED Electronically Signed On 02-26-2022 15:15:56 CDT by Trevor Apple D.O.
[2022-02-26] MEDS: methylPREDNISolone SOD SUCC 125 MG VIAL IV PUSH (14:24)
[2022-02-26] MEDS: SODIUM CHLORIDE 0.9% IV 1,000 ML 999 ML IV CONT (14:25)
[2022-02-26] MEDS: PANTOPRAZOLE SODIUM IV 40 MG VIAL IV PUSH (14:27)
[2022-02-26 14:39] LABS: Basophils Absolute Auto 0.06 K/mm3 (0.00-0.10); Eosinophils Percent Auto 3.5 % (1.0-6.0); Hemoglobin 12.7 g/dL (11.7-13.8); Immature Granulocyte Absolute 0.02 K/mm3 (0.00-0.00); Immature Granulocyte Percent A 0.3 % (0.0-0.0); Lymphocytes Absolute Auto 1.97 K/mm3 (1.10-4.50); Lymphocytes Percent Auto 34.1 % (18.0-42.0); Mean Corpuscular HGB Conc 34.3 g/dL (32.0-36.0); Mean Corpuscular Hemoglobin 29.6 pg (27.0-31.0); Mean Corpuscular Volume 86.2 fL (78.0-102.0); Mean Platelet Volume 10.9 fl (9.2-11.8); Monocytes Absolute Auto 0.49 K/mm3 (0.10-0.90); Monocytes Percent Auto 8.5 % (2.0-11.0); Neutrophils Percent Auto 52.6 % (50.0-70.0); Platelet Count Result 201 K/mm3 (150-420); Red Blood Count 4.29 M/mm3 (4.20-5.40); Red Cell Distribution Width 11.7 % (11.6-14.4); White Blood Count 5.8 K/mm3 (4.8-10.8)
[2022-02-26] MEDS: EPINEPHrine HCL INJ 1 MG/ML AMPUL 0.3 MG SUB-Q (14:41)
[2022-02-26] MEDS: ONDANSETRON INJ 4 MG/2 ML VIAL IV PUSH (14:46)
[2022-02-26 14:57] LABS: Alanine Aminotransferase 24 U/L (14-59); Albumin Level 4.1 g/dL (3.4-5.0); Alkaline Phosphatase 102 U/L (46-116); Anion Gap 6 mmol/L (8-16); Aspartate Amino Transferase 23 U/L (15-37); Bilirubin,Total 0.5 mg/dL (0.00-1.00); Blood Urea Nitrogen 9 mg/dL (7-18); Carbon Dioxide 28 mmol/L (21-32); Chloride 102 mmol/L (98-108); Estimated CRCL calculation 44 ml/min; Estimated Glomerular Filt Rate > 60; Glucose 126 mg/dL (70-99); Osmolality Calculated 282 mOsm/kg (285-295); Potassium 3.6 mmol/L (3.5-5.1); Sodium 136 mmol/L (136-145); Total Protein 7.2 g/dL (6.4-8.2); Troponin I 8.9 ng/L (0.00-60.4)
[2022-02-26 14:59] LABS: Lactic Acid Reflex 1.8 mmol/L (0.4-2.0)
--- NOTE | 2022-02-26 15:29 | PC.NURSE ---
pt resting per cot, feeling much better. wanting to go home. explained awaiting lab and radiology results. call avilez in reach.
[2022-02-26 15:32] LABS: Add Urine Microscopic? NO; Appearance Urine Clear (Clear); Bilirubin Urine Negative (Negative); Blood Urine Negative (Negative); Color Urine Light Yellow (Yellow); Glucose Urine UA Negative (Negative); Ketones Urine Negative (Negative); Leukocyte Esterase Ur Negative (Negative); Nitrate Urine Negative (Negative); Protein Urine Negative (Negative); Urobilinogen Urine 0.2 mg/dL (0.2-1.0); pH Urine 6.5 (5.0-8.0)
--- NOTE | 2022-02-26 15:48 | ED.GENADULT ---
HPI - General Adult General Chief complaint: Allergic Reaction Stated complaint: SWEATING AND ABD PAIN Time Seen by Provider: 02/26/22 13:52 Source: patient and RN notes reviewed Mode of arrival: ambulatory Limitations: no limitations History of Present Illness MD complaint: abd pain Onset (ago): day(s) (1) Location: abdomen Radiation: non-radiation Severity: mild Severity scale (1-10): 4 Quality: aching and dull Pain Consistency: constant Relieving factors: none Exacerbating factors: none Associated symptoms: denies other symptoms Related Data Home Medications Medication Instructions Recorded Confirmed ascorbic acid (vitamin C) 500 mg 500 mg PO DAILY 04/11/19 02/26/22 tablet (Vitamin C) levothyroxine 88 mcg capsule 88 mcg PO HS 04/11/19 02/26/22 (Tirosint) meloxicam 15 mg tablet 15 mg PO DAILY PRN Pain 04/11/19 02/26/22 pantoprazole 40 mg tablet,delayed 40 mg PO QAM PRN Acid Reflux 04/11/19 02/26/22 release (Protonix) propylene glycol 0.6 % eye drops 1 drop ophthalmic (eye) HS 04/11/19 02/26/22 (Systane Balance) calcium carbonate 600 mg calcium 600 mg PO DAILY 04/12/19 02/26/22 (1,500 mg) tablet (Calcium) pravastatin 10 mg tablet 10 mg PO DAILY 04/12/19 02/26/22 multivitamin 1 tablet PO DAILY 04/26/19 02/26/22 vitamin E 268 mg (400 unit) capsule 400 unit PO DAILY 04/26/19 02/26/22 cannabidiol 100 mg/mL oral 100 mg PO DAILY 01/09/22 02/26/22 solution (Epidiolex) Allergies Allergy/AdvReac Type Severity Reaction Status Date / Time risedronate sodium Allergy Rash Verified 02/11/22 13:48 [From Actonel] Review of Systems Review of Systems: All systems reviewed & are unremarkable except as noted in HPI and below Constitutional: Constitutional: Reports no additional constitutional complaints Eyes: Eyes: Reports no additional eye complaints ENT: Reports system reviewed and no additional complaints, except as documented Cardiovascular: Cardiovascular: Reports no additional cardiovascular complaints Respiratory: Respiratory: Reports no additional respiratory complaints Gastrointestinal: Gastrointestinal: Reports abdominal pain and Reports nausea Genitourinary: Genitourinary: Reports no additional female genitourinary complaints Musculoskeletal: Musculoskeletal: Reports no additional musculoskeletal complaints Integumentary/Breasts: Skin/Breast: Reports system reviewed and no additional complaints, except as docu Neurologic: Reports system reviewed and no additional complaints, except as documented Psychiatric: Psychiatric: Reports no additional psychiatric complaints Endocrine: Endocrine: Reports no additional endocrine complaints Hematologic/Lymphatic: Hematologic/Lymphatic: Reports no additional hematologic/lymphatic complaints Allergic/Immunologic: Allergic/Immunologic: Reports no additional allergic/immunologic complaints [facility] Past Medical History Medical History (Updated 02/27/22 @ 00:00 by Background Daflaquito) B12 deficiency Cervical radiculitis right Corneal abrasion right Disorder of thyroid gland Hypertriglyceridemia Hypothyroidism Osteoporosis Surgical History Surgical History H/O section H/O colonoscopy H/O: hysterectomy Hx of tonsillectomy Family History Family History Mother Family history of elevated blood lipids Family history of atrial fibrillation Hyperlipidemia Atrial fibrillation Unknown Leukemia Other Diabetes mellitus Family history of malignant neoplasm Social History Social History Smoking status: Former smoker Tobacco type: cigarettes Second hand tobacco smoke exposure: No Smoking end date: 06/08/09 Alcohol intake: never Alcohol use details: 1 glass of consumed rarely Substance use: never Substance use type: does not use [facility]
[2022-02-26 16:25] VITALS: BP 144/81; PULSE 87; RESP 20; O2SAT 97
== END 2022-02-26 16:30 | disposition home or self-care (01) ==
PROVIDERS: Emergency Provider Emergency Medicine; PCP Internal Medicine
DX: R10.9 Unspecified abdominal pain (principal); E03.9 Hypothyroidism, unspecified; M81.0 Age-related osteoporosis without current pathological fracture; E78.1 Pure hyperglyceridemia; Z87.891 Personal history of nicotine dependence
CPT/HCPCS: 36415; 70490; 71250; 74176; 80053; 81003; 83605; 84484; 85025; 93005; 96361; 96372; 96374; 96375; 99284; C9113; J0171; J2405; J2930; J7030

== ENCOUNTER 2022-10-06 14:56 | Outpatient (CLI) | payer MEDICARE, SELFPAY ==
--- NOTE | ~2022-10-06 | XR_ITS ---
EXAM: XR hand RT min 3V DATE: 10/06/2022 15:11 HISTORY: RIGHT PROXIMAL 4TH DIGIT PAIN. NKI. . COMPARISON: None available. FINDINGS: Normal mineralization. No fracture or dislocation. No lytic or blastic lesion. Scattered m ild degenerative changes. No erosion or periosteal change. Soft tissues within normal limits. IMPRESSION: No acute osseous finding in the right hand. Polyarticular osteoarthritis. Reviewed, dictated and finalized at location K. IMPRESSION: No acute osseous finding in the right hand. Polyarticular osteoarth ritis.
== END 2022-10-06 14:57 | disposition home or self-care (01) ==
LOC: CHSIMG 14:57
PROVIDERS: PCP Internal Medicine; Visit Provider Internal Medicine
DX: M79.644 Pain in right finger(s) (principal); M19.041 Primary osteoarthritis, right hand
CPT/HCPCS: 73130

== ENCOUNTER 2022-11-12 06:59 | Outpatient (CLI) | payer MEDICARE, SELFPAY ==
--- NOTE | ~2022-11-12 | XR_ITS ---
XR chest 2V DATE: 11/12/2022 07:25 INDICATION: Hypertension TECHNIQUE: 2 views shifted to represent glandular phalanx COMPARISON: July 24, 2016 two-view chest FINDINGS: Normal heart size. No hilar or mediastinal enlargement. Approximately 1.6 cm rounded opacity overlies the medial right lung base, not evident on July 24, 2016. CT thorax is recommended for further evaluation. No other pulmonary mass lesion or pulmonary infiltrate or consolidation, pleural effusion or pulmonar y vascular congestion or pneumothorax is detected. Osteopenia. Surgical clips, right upper quadrant, consistent with cholecystectomy. IMPRESSION: New 1.6 cm right lower lobe mass; CT thorax is recommended Dr. Davies left a voicemail for Dr. Xiong's nurse on 11/12/2022 at 0859 hours. Reviewed, dictated and finalized at location []
[2022-11-12 07:18] LABS: Basophils Absolute Auto 0.05 K/mm3 (0.00-0.10); Basophils Percent Auto 1.1 % (0.0-1.0); Eosinophils Absolute Auto 0.31 K/mm3 (0.02-0.50); Hematocrit 39.7 % (35.0-42.0); Hemoglobin 13.5 g/dL (11.7-13.8); Immature Granulocyte Absolute 0.02 K/mm3 (0.00-0.00); Immature Granulocyte Percent A 0.5 % (0.0-0.0); Lymphocytes Absolute Auto 1.87 K/mm3 (1.10-4.50); Lymphocytes Percent Auto 42.1 % (18.0-42.0); Mean Corpuscular Hemoglobin 30.1 pg (27.0-31.0); Mean Corpuscular Volume 88.4 fL (78.0-102.0); Mean Platelet Volume 10.9 fl (9.2-11.8); Monocytes Absolute Auto 0.44 K/mm3 (0.10-0.90); Monocytes Percent Auto 9.9 % (2.0-11.0); Neutrophils Absolute Auto 1.8 K/mm3 (1.7-7.2); Neutrophils Percent Auto 39.4 % (50.0-70.0); Platelet Count Result 202 K/mm3 (150-420); Red Blood Count 4.49 M/mm3 (4.20-5.40); Red Cell Distribution Width 11.7 % (11.6-14.4); White Blood Count 4.4 K/mm3 (4.8-10.8)
[2022-11-12 07:19] LABS: Appearance Urine Clear (Clear); Bilirubin Urine Negative (Negative); Blood Urine Negative (Negative); Color Urine Yellow (Yellow); Glucose Urine UA Negative (Negative); Ketones Urine Negative (Negative); Leukocyte Esterase Ur Negative (Negative); Nitrate Urine Negative (Negative); Protein Urine Negative (Negative); Specific Grav Ur 1.025 (1.010-1.020); Urobilinogen Urine 0.2 mg/dL (0.2-1.0)
[2022-11-12 07:29] LABS: Add Urine Microscopic? NO
[2022-11-12 08:06] LABS: Alanine Aminotransferase 25 U/L (14-59); Albumin Level 3.9 g/dL (3.4-5.0); Alkaline Phosphatase 95 U/L (46-116); Anion Gap 9 mmol/L (8-16); Aspartate Amino Transferase 23 U/L (15-37); Bilirubin,Total 0.4 mg/dL (0.00-1.00); Blood Urea Nitrogen 13 mg/dL (7-18); Carbon Dioxide 28 mmol/L (21-32); Chloride 106 mmol/L (98-108); Cholesterol 182 mg/dL (0-200); Estimated Glomerular Filt Rate > 60; Glucose 101 mg/dL (70-99); HDL Direct 50 mg/dL (40-60); LDL Cholesterol Calculated 96 mg/dL (<130); Osmolality Calculated 296 mOsm/kg (285-295); Sodium 143 mmol/L (136-145); Thyroid Stimulating Hormone 0.28 uIU/mL (0.36-3.74); Total Protein 6.9 g/dL (6.4-8.2); Triglycerides 181 mg/dL (0-150)
== END 2022-11-12 07:00 | disposition home or self-care (01) ==
LOC: CHSLAB 07:01
PROVIDERS: PCP Internal Medicine; Visit Provider Internal Medicine
DX: I10 Essential (primary) hypertension (principal); R91.8 Other nonspecific abnormal finding of lung field
CPT/HCPCS: 36415; 71046; 80053; 80061; 81003; 84443; 85025

== ENCOUNTER 2022-11-13 09:29 | Outpatient (CLI) | payer MEDICARE, SELFPAY ==
--- NOTE | 2022-11-13 11:00 | NEURO_ITS ---
Impression: Patient reports a history of numbness in left 5th digit. # Mild right Carpal Tunnel Syndrome. # Evidence of left ulnar sensory neuropathy -- could be suggestive of more distal lesion # Normal EMG/needle exam # Clinical correlation recommended. Nerve Conduction Studies Anti Sensory Summary Table Stim Site NR Peak (ms) P-T Amp (?V) Site1 Site2 Delta-P (ms) Dist (cm) Mata (m/s) Left Median Anti Sensory (2-3nd Digit) Wrist 3.6 97.2 Wrist 2-3nd Digit 3.6 14.0 39 Wrist 3.8 90.7 Wrist 2-3nd Digit 3.6 14.0 39 Right Median Anti Sensory (2-3nd Digit) Wrist 3.9 46.0 Wrist 2-3nd Digit 3.9 14.0 36 Wrist 4.1 40.1 Wrist 2-3nd Digit 3.9 14.0 36 Left Radial Anti Sensory (Base 1st Digit) Wrist 1.6 51.9 Wrist Base 1st Digit 1.6 0.0 Right Radial Anti Sensory (Base 1st Digit) Wrist 2.2 69.2 Wrist Base 1st Digit 2.2 0.0 Left Ulnar Anti Sensory (5th Digit) Wrist 3.9 20.0 Wrist 5th Digit 3.9 14.0 36 Right Ulnar Anti Sensory (5th Digit) Wrist 3.2 34.9 Wrist 5th Digit 3.2 14.0 44 Motor Summary Table Stim Site NR Onset (ms) O-P Amp (mV) Site1 Site2 Delta-0 (ms) Dist (cm) Mata (m/s) Left Median Motor (Abd Poll Brev) Wrist 3.4 4.2 Elbow Wrist 4.1 21.0 51 Elbow 7.5 3.6 Right Median Motor (Abd Poll Brev) Wrist 3.5 5.6 Elbow Wrist 3.7 20.0 54 Elbow 7.2 3.6 Left Ulnar Motor (Abd Dig Minimi) Wrist 3.3 4.0 A Elbow Wrist 5.1 27.0 53 A Elbow 8.4 3.9 B Elbow Wrist 3.3 17.0 52 B Elbow 6.6 3.2 Right Ulnar Motor (Abd Dig Minimi) Wrist 2.6 8.7 A Elbow Wrist 4.7 25.0 53 A Elbow 7.3 7.0 B Elbow Wrist 3.3 17.0 52 B Elbow 5.9 7.4 F Wave Studies NR F-Lat (ms) L-R F-Lat (ms) Left Median (Mrkrs) (Abd Poll Brev) 25.63 0.09 Right Median (Mrkrs) (Abd Poll Brev) 25.72 0.09 Left Ulnar (Mrkrs) (Abd Dig Min) 26.60 1.29 Right Ulnar (Mrkrs) (Abd Dig Min) 25.31 1.29 EMG Side Muscle Nerve Root Ins Act Fibs Amp Dur Recrt Comment Right 1stDorInt Ulnar C8-T1 Nml Nml Nml Nml Nml Right Ext Indicis Radial (Post Int) C7-8 Nml Nml Nml Nml Nml Right Ext Digitorum Radial (Post Int) C7-8 Nml Nml Nml Nml Nml Right BrachioRad Radial C5-6 Nml Nml Nml Nml Nml Right PronatorTeres Median C6-7 Nml Nml Nml Nml Nml Right Abd Poll Brev Median C8-T1 Nml Nml Nml Nml Nml Left 1stDorInt Ulnar C8-T1 Nml Nml Nml Nml Nml Left Ext Indicis Radial (Post Int) C7-8 Nml Nml Nml Nml Nml Left Ext Digitorum Radial (Post Int) C7-8 Nml Nml Nml Nml Nml Left BrachioRad Radial C5-6 Nml Nml Nml Nml Nml Left PronatorTeres Median C6-7 Nml Nml Nml Nml Nml Left Abd Poll Brev Median C8-T1 Nml Nml Nml Nml Nml MTDD
== END 2022-11-13 09:30 | disposition home or self-care (01) ==
PROVIDERS: PCP Internal Medicine; Visit Provider Internal Medicine
DX: R20.2 Paresthesia of skin (principal); G56.01 Carpal tunnel syndrome, right upper limb
CPT/HCPCS: 95886; 95911

== ENCOUNTER 2022-11-21 07:12 | Outpatient (CLI) | payer MEDICARE, SELFPAY ==
--- NOTE | ~2022-11-21 | CT_ITS ---
EXAMINATION: CT diagnostic chest w con DATE: 11/21/2022 07:43 INDICATION: Lung nodule on chest x-ray TECHNIQUE: Transaxial computed tomographic images of the chest were obtained after the administration of 75 cc of Omnipaque 350 intravenous contrast. The dose-length product (DLP) was 120.02 mGy-cm. Ite rative reconstruction was used. COMPARISON: 02/26/2022 FINDINGS: There is a 1.6 cm nodule with central calcification corresponding to the finding in questio n on chest radiograph. The nodule is stable when compared to prior CT examinations end consistent wit h old granulomatous disease. Again seen is a chronic bronchoceles in the medial aspect of the left lo wer lobe. There is mild emphysema. The lungs are free of acute opacities. No pathologically enlarged thoracic lymph nodes are identified. The heart size is normal. There is mild thoracic spondylosis. IMPRESSION: 1. Old granulomatous disease without suspicious pulmonary nodule identified. 2. Mild emphysema. Reviewed, dictated and finalized at location A.
== END 2022-11-21 07:13 | disposition home or self-care (01) ==
LOC: CHSIMG 07:13
PROVIDERS: PCP Internal Medicine; Visit Provider Nurse Practitioner Family
DX: R91.8 Other nonspecific abnormal finding of lung field (principal); J43.9 Emphysema, unspecified
CPT/HCPCS: 71260; Q9967

== ENCOUNTER 2022-12-16 14:34 | Outpatient (RCR) | payer MEDICARE, SELFPAY ==
--- NOTE | 2022-12-26 10:00 | BUOTOPEVAL ---
Assessment and note entered by Alyssa Rucker OT Evaluation Information Assessment Status Evaluation Diagnosis Hand arthritis Onset 11/06/2022 Subjective Information The patient reports feeling hand pain at dorsal aspect of hand where needles were placed and also having arthritis pain at R CMC joint. She reports having a difficult time with gardening and weeding using little instraments in her yard and fatiguing after 10 minutes of activities. She then has to stop because of routing clerk weakness and pain. She reports that turning lids off bottles is painful, clasping dog collar, and using gardening equipment. Reported Pain Level Pain Score 2: Self Report Pain Score 0: Self Report Pain Score 2: Self Report Pain Score 3: Self Report Assessment OT Clinical Summary The patient is a 67 year old female who was referred to outpatient OT due to pain in R hand. The patient has a PMH that includes but is not limited to arthritis. The patient previously demonstrated no pain or tinging in UE and WNL routing clerk and wrist strength needed to perform daily tasks. The patient now demonstrate mild to moderate numbness and tingling in UE, pain that affects her ability to perform gardening tasks, and limited strength of wrist and routing clerk. The patient requires skilled OT to address current deficits and return to PLOF. Plan of Care Interventions Therapeutic Exercise,Manual Therapy,Neuro Re- education,Therapeutic Activities,Hot Pack/Cold Pack,Electrical Stimulation,Sensory Integrative Techn,Self-Care/Home Management,Ultrasound OT Services Indicated Yes Treatment Frequency and 2x/week for 10 visits. Duration These treatments will address the objective and functional deficits as defined above. The patient will be advanced safely and appropriately in order for the patient to progress towards his/her prior level of function. Additional exercises will be introduced and as well as a comprehensive home exercise program upon discharge, if needed, ?to ensure carryover of functional gains achieved in the clinic. This treatment plan has been reviewed and agreement upon by the patient.
--- NOTE | 2022-12-30 11:49 | OTOPDC ---
Assessment and note entered by Alyssa Rucker OT Evaluation Information Assessment Status Discharge Reported Pain Level Pain Score 0: Self Report Pain Score 2: Self Report Assessment OT Clinical Summary The patient demonstrates significant progress in pain, sensation, and strength affecting her ability to garden and engage in daily activities. The patient reports that she can tell she is not compensating with other muscle groups anymore, her pinch has gotten stronger and more effective, she feels that her scow captain strength is much better and the nerve stretches that she was taught have helped a lot with tingling sensation. The patient reports no pain in R hand and is able to complete her daily ADLs and IADLs without discomfort. The patient has met all goals and no longer requires skilled OT. Plan of Care OT Services Indicated No
--- NOTE | 2022-12-31 08:46 | OPREHPOC ---
Outpatient Therapy Plan of Care This is a Multidisciplinary Plan of Care that may contain components documented by all disciplines (PT, OT, and ST.) PT Problem 1 PT Problem #1 Knowledge Deficit PT Goal 1 Goal 1. independent and compliant with HEP to improve tolerance for continued skilled PT and exercises. Target Visit 4 PT Problem 2 PT Problem #2 Impaired Range of Motion PT Goal 1 Goal 1. 40 degrees bilateral arom cervical sidebending 2. 75 degrees or better bilateral arom cervical rotation Target Visit 8 PT Problem 3 PT Problem #3 Pain PT Goal 1 Goal 1. patient to report no neck/L arm pain or symptoms in the last week Target Visit 8 PT Problem 4 PT Problem #4 Impaired Functional Mobil PT Goal 1 Goal 1. no L UE paresthesias 2. oswestry to display 0% functional deficits 3. patient to display improved posture by retracted head and shoulders 4. patient to return to gardening at home for 2 hours or more at a time without symptoms Target Visit 8 OT Problem 1 OT Problem #1 Knowledge Deficit OT Goal 1 Goal The patient will demonstrate 100% knowledge of UE HEP needed to improve and maintain function of UE. Target Visit 5 Progress Met Comment DISCONTINUED OT Problem 2 OT Problem #2 Impaired Strength OT Goal 1 Goal The patient will demonstrate increased strength of R UE including radial deviation at 5/5, supination/pronation at 5/5 and demonstrate R screw cutter strength at >30 lbs and lateral pinch >8 lbs in order to maintain grasp of gardening and cooking tools. Target Visit 10 Progress Partially Met Comment DISCONTINUED OT Problem 3 OT Problem #3 Pain OT Goal 1 Goal The patient will report <2/10 pain for 3 consecutive sessions and report minimal pain during functional activities in order to decrease discomfort. Target Visit 10
--- NOTE | 2022-12-31 08:47 | PTOPEVAL1 ---
Assessment and note entered by JT File, PT Evaluation Information Assessment Status Discharge Diagnosis acute midline thoracic back pain, hand arthritis Onset 12/16/22 Subjective Information patient reports she has tingling in the L hand in the ring and little finger. she reports she also has carpal tunnel in the R hand as noted by a nerve conduction study. she reports she is not bad enough to have surgery on the R wrist. she reports she has upper thoracic/lower cervical back pain. right at the hump in her neck. she reports when she pressess on the area her L hand numbness will go away. she reports the R hand did not bother her until after the nerve conduction study. she reports on the L side she had an ulnar nerve transposition back in 2007. she reports she is unable to weed in her garden. she reports she would like to be able to weed in her garden and work around the yard and house all day. she reports she is active around her home. Reported Pain Level Pain Score 0: Self Report Pain Score 2: Self Report Assessment PT Clinical Summary mrs. alonso presents to skilled PT services for evaluation and treatment of cervical spine pain and L cervical radiculopathy. she presents this date with signs and symptoms of a C7/8 cervical radiculopathy affecting her L UE. she has not noted C7/C8 weakness, but paresthesias in the L hand. she would benefit from continued skilled PT to address these deficits and return to her prior level functional activity performance/quality of life including gardening and home care. she will seek skilled OT evaluation for the R hand carpal tunnel symptoms Plan of Care Interventions Electrical Stimulation,Hot Pack/Cold Pack,Manual Therapy,Neuro Re-education,Patient/Caregiver Educati,Therapeutic Activities,Therapeutic Exercise PT Services Indicated Yes Treatment Frequency and 2x weekly for 8 visits Duration These treatments will address the objective and functional deficits as defined above. The patient will be advanced safely and appropriately in order for the patient to progress towards his/her prior level of function. Additional exercises will be introduced and as well as a comprehensive home exercise program upon discharge, if needed, ?to ensure carryover of functional gains achieved in the clinic. This treatment plan has been reviewed and agreement upon by the patient.
--- NOTE | 2023-01-16 07:52 | PTOPDC ---
Assessment and note entered by Nieves Ross DPT Evaluation Information Assessment Status Re-evaluation Diagnosis acute midline thoracic back pain, hand arthritis Onset 12/16/22 Subjective Information Patient reports she has had little numbess in her L hand. She reports that when she does have the symptoms HEP is able to decrease them. Patient reports she has been able to do all ADLs at PLOF. She reports independence with HEP Reported Pain Level Pain Score 0: Self Report Assessment PT Clinical Summary Patient was seen for 8 visits of skilled PT with good progress towards all goals. Patient met or partially met all set goals during POC. Patient has been able to return to all ADLs at PLOF and is able to control symptoms with HEP. Patient is appropriate for DC at this time. Plan of Care PT Services Indicated No
== END 2023-01-16 16:16 | disposition home or self-care (01) ==
LOC: CHSPT 14:34
PROVIDERS: PCP Internal Medicine; Visit Provider Orthopaedic Surgery
DX: M54.6 Pain in thoracic spine (principal); M19.049 Primary osteoarthritis, unspecified hand
CPT/HCPCS: 97014; 97110; 97140; 97161; 97165; G0283

== ENCOUNTER 2022-12-24 10:16 | Outpatient (CLI) | payer MEDICARE, SELFPAY ==
--- NOTE | ~2022-12-24 | MM_ITS ---
EXAMINATION: MM screening tung BI w chilo HISTORY: Screening TECHNIQUE: Craniocaudal and mediolateral oblique 3-D tomosynthesis images were obtained and synthetic 2-D images were generated. CAD analysis was submitted and interpreted. COMPARISON: Comparison to multiple prior studies sequentially, with oldest reviewed study dated 01/16. BREAST PARENCHYMAL COMPOSITION: There are scattered areas of fibroglandular density. FINDINGS: There is no evidence of suspicious mass, calcification, or architectural distortion to sugg est malignancy in either breast. There has been no suspicious interval change. IMPRESSION: 1. No mammographic evidence of malignancy. 2. Recommend routine screening mammography in one year. BI-RADS Category 1: Negative Reviewed, dictated and finalized at location A.
== END 2022-12-24 10:17 | disposition home or self-care (01) ==
PROVIDERS: PCP Internal Medicine; Visit Provider Internal Medicine
DX: Z12.31 Encounter for screening mammogram for malignant neoplasm of breast (principal)
CPT/HCPCS: 77063; 77067

== ENCOUNTER 2023-05-18 08:07 | Outpatient (CLI) | payer MEDICARE, SELFPAY ==
[2023-05-22 12:27] LABS: Vitamin D 25 Hydroxy 33 ng/mL (30-100)
== END 2023-05-18 08:08 | disposition home or self-care (01) ==
PROVIDERS: PCP Internal Medicine
DX: R79.89 Other specified abnormal findings of blood chemistry (principal); M81.0 Age-related osteoporosis without current pathological fracture
CPT/HCPCS: 36415; 82306

== ENCOUNTER 2023-05-26 10:31 | Outpatient (CLI) | payer MEDICARE, SELFPAY ==
[2023-05-26 10:45] LABS: Basophils Absolute Auto 0.06 K/mm3 (0.00-0.10); Basophils Percent Auto 0.7 % (0.0-1.0); Eosinophils Percent Auto 1.1 % (1.0-6.0); Hematocrit 45.6 % (35.0-42.0); Hemoglobin 15.1 g/dL (11.7-13.8); Immature Granulocyte Absolute 0.05 K/mm3 (0.00-0.00); Immature Granulocyte Percent A 0.6 % (0.0-0.0); Lymphocytes Absolute Auto 1.47 K/mm3 (1.10-4.50); Lymphocytes Percent Auto 16.7 % (18.0-42.0); Mean Corpuscular HGB Conc 33.1 g/dL (32.0-36.0); Mean Corpuscular Hemoglobin 29.6 pg (27.0-31.0); Mean Corpuscular Volume 89.4 fL (78.0-102.0); Mean Platelet Volume 10.7 fl (9.2-11.8); Monocytes Absolute Auto 0.65 K/mm3 (0.10-0.90); Monocytes Percent Auto 7.4 % (2.0-11.0); Neutrophils Absolute Auto 6.5 K/mm3 (1.7-7.2); Neutrophils Percent Auto 73.5 % (50.0-70.0); Platelet Count Result 261 K/mm3 (150-420); Red Cell Distribution Width 11.9 % (11.6-14.4); White Blood Count 8.8 K/mm3 (4.8-10.8)
[2023-05-26 12:06] LABS: Alanine Aminotransferase 55 U/L (14-59); Alkaline Phosphatase 102 U/L (46-116); Anion Gap 7 mmol/L (8-16); Aspartate Amino Transferase 43 U/L (15-37); Bilirubin,Total 0.6 mg/dL (0.00-1.00); Blood Urea Nitrogen 14 mg/dL (7-18); Calcium 9.4 mg/dL (8.5-10.1); Carbon Dioxide 32 mmol/L (21-32); Chloride 99 mmol/L (98-108); Cholesterol 236 mg/dL (0-200); Estimated Glomerular Filt Rate 51; Glucose 116 mg/dL (70-99); HDL Direct 61 mg/dL (40-60); LDL Cholesterol Calculated 121 mg/dL (<130); Osmolality Calculated 287 mOsm/kg (285-295); Potassium 3.7 mmol/L (3.5-5.1); Sodium 138 mmol/L (136-145); Thyroid Stimulating Hormone 0.23 uIU/mL (0.36-3.74); Total Protein 8.3 g/dL (6.4-8.2); Triglycerides 268 mg/dL (0-150)
== END 2023-05-26 10:32 | disposition home or self-care (01) ==
LOC: CHSLAB 10:34
PROVIDERS: PCP Internal Medicine; Visit Provider Internal Medicine
DX: E03.9 Hypothyroidism, unspecified (principal); E78.5 Hyperlipidemia, unspecified
CPT/HCPCS: 36415; 80053; 80061; 84443; 85025

== ENCOUNTER 2023-08-28 07:07 | Outpatient (CLI) | payer MEDICARE, SELFPAY ==
[2023-08-28 08:36] LABS: Alanine Aminotransferase 24 U/L (14-59); Albumin Level 4.1 g/dL (3.4-5.0); Alkaline Phosphatase 88 U/L (46-116); Anion Gap 9 mmol/L (8-16); Aspartate Amino Transferase 17 U/L (15-37); Bilirubin,Total 0.5 mg/dL (0.00-1.00); Blood Urea Nitrogen 13 mg/dL (7-18); Calcium 9.2 mg/dL (8.5-10.1); Carbon Dioxide 30 mmol/L (21-32); Chloride 105 mmol/L (98-108); Cholesterol 239 mg/dL (0-200); Estimated Glomerular Filt Rate > 60; Glucose 95 mg/dL (70-99); HDL Direct 60 mg/dL (40-60); LDL Cholesterol Calculated 132 mg/dL (<130); Osmolality Calculated 298 mOsm/kg (285-295); Sodium 144 mmol/L (136-145); Thyroid Stimulating Hormone 0.43 uIU/mL (0.36-3.74); Total Protein 7.1 g/dL (6.4-8.2); Triglycerides 233 mg/dL (0-150); Vitamin B12 303 pg/mL (193-986)
[2023-08-29 01:57] LABS: Ferritin 98 ng/mL (8-252); Iron 114 ug/dL (50-170); Percent Iron Saturation 39 % (12-57)
[2023-09-03 22:12] LABS: Vitamin D 25 Hydroxy 39 ng/mL (30-100)
== END 2023-08-28 07:08 | disposition home or self-care (01) ==
LOC: CHSLAB 07:10
PROVIDERS: PCP Internal Medicine; Visit Provider Internal Medicine
DX: M81.0 Age-related osteoporosis without current pathological fracture (principal); K76.0 Fatty (change of) liver, not elsewhere classified; E03.8 Other specified hypothyroidism; R03.0 Elevated blood-pressure reading, without diagnosis of hypertension; D51.9 Vitamin B12 deficiency anemia, unspecified; D64.9 Anemia, unspecified
CPT/HCPCS: 36415; 80053; 80061; 82306; 82607; 82728; 83540; 83550; 84443

== ENCOUNTER 2023-11-09 08:24 | Outpatient (CLI) | payer MEDICARE, SELFPAY ==
--- NOTE | ~2023-11-09 | DEXA_ITS ---
? Bone Density Report? Name:? CINTHIA WARREN Patient ID:??? [id number] Age:? 68 Sex:? Female Ethnicity:? White Date of : 1955 Indication: postmenopausal; screening for osteoporosis; height loss; hysterectomy; Referring Provider: UNKNOWN, UNKNOWN Study: Bone densitometry was performed. Exam Date: November 09, 2023 Accession number: [id number] Bone Density: Region? BMD??? T-score? Z-score? ?Classification AP Spine(L1-L4)? 0.816?? -2.1? -0.1? Osteopenia Femoral Neck (Left)? 0.498?? -3.2? -1.4? Osteoporosis Total Hip (Left)? 0.696?? -2.0? -0.6? Osteopenia Femoral Neck (Right)? 0.483?? -3.3? -1.6? Osteoporosis Total Hip (Right)? 0.659?? -2.3? -0.9? Osteopenia Femoral Neck Mean? 0.490?? -3.2? -1.5? Osteoporosis Total Hip Mean? 0.678?? -2.2?-0.7? Osteopenia World Health Organization criteria for BMD impression classify patients as: Normal (T-score at or above -1.0), Osteopenia (T-score between -1.0 and -2.5), or Osteoporosis (T-score at or below -2.5). 10-year Fracture Risk: FRAX not reported because: ? Some T-score for Spine Total or Hip Total or Femoral Neck at or below -2.5 ? Treated for osteoporosis Clinical Information Provided by Patient: Is being treated for osteoporosis Has used the following medications: Actonel (i.e. risedronate), Boniva (i.e. ibandronate), Fosamax (i.e. alendronate), Reclast (i.e. zoledronate), Vitamin D, Calcium Has the following medical conditions: Hysterectomy Patient maximum height was 61 Menopause Age: 39 No regular weight bearing exercise Onset of menses at age 14 Number of children 1 Impression: The patient has osteoporosis, based on the Right Femoral Neck T- score. Discussion: It is important to ask patients whether they are taking their medications and to encourage continued and appropriate compliance with their osteoporosis therapies to reduce fracture risk. It is also important to review their risk factors and encourage appropriate calcium and vitamin D intakes, exercise, fall prevention and other lifestyle measures. Follow-Up: Consider a repeat BMD and Vertebral Fracture Assessment (VFA) exam in 2 years or sooner if medically necessary, to reassess this patient's status. Reported by: Dr. Jasmeet Ruth on 11/12/2023 1:28:00 PM. MARITZA
== END 2023-11-09 08:25 | disposition home or self-care (01) ==
LOC: CHSIMG 08:25
PROVIDERS: PCP Internal Medicine
DX: Z78.0 Asymptomatic menopausal state (principal); M81.0 Age-related osteoporosis without current pathological fracture; M85.89 Other specified disorders of bone density and structure, multiple sites
CPT/HCPCS: 77080

== ENCOUNTER 2023-12-28 08:17 | Outpatient (CLI) | payer MEDICARE, SELFPAY ==
--- NOTE | ~2023-12-28 | MM_ITS ---
EXAMINATION: MM screening [facility] BI w chilo HISTORY: Screening TECHNIQUE: Craniocaudal and mediolateral oblique 3-D tomosynthesis images were obtained and synthetic 2-D images were generated. CAD analysis was submitted and interpreted. COMPARISON: 11/07/2021 and 12/24/2022 BREAST PARENCHYMAL COMPOSITION: Not dense: There are scattered areas of fibroglandular density. FINDINGS: There is no evidence of suspicious mass, calcification, or architectural distortion to sugg est malignancy in either breast. There has been no suspicious interval change. IMPRESSION: 1. No mammographic evidence of malignancy. 2. Recommend routine screening mammography in one year. BI-RADS Category 1: Negative Reviewed, dictated and finalized at location B.
== END 2023-12-28 08:18 | disposition home or self-care (01) ==
LOC: CHSIMG 08:18
PROVIDERS: PCP Internal Medicine; Visit Provider Internal Medicine
DX: Z12.31 Encounter for screening mammogram for malignant neoplasm of breast (principal)
CPT/HCPCS: 77063; 77067

== ENCOUNTER 2024-03-16 08:49 | Outpatient (CLI) | payer MEDICARE, SELFPAY | END 2024-03-16 08:50 | disposition home or self-care (01) | LOC: CHSCARD 08:50 | PROVIDERS: PCP Internal Medicine; Visit Provider Internal Medicine | DX: R94.2 Abnormal results of pulmonary function studies (principal) | CPT/HCPCS: 94060; 94726; 94729 ==

== ENCOUNTER 2024-03-29 07:33 | Outpatient (CLI) | payer MEDICARE, SELFPAY ==
[2024-03-29 07:43] LABS: Basophils Absolute Auto 0.07 K/mm3 (0.00-0.10); Basophils Percent Auto 1.3 % (0.0-1.0); Eosinophils Absolute Auto 0.33 K/mm3 (0.02-0.50); Eosinophils Percent Auto 6.3 % (1.0-6.0); Hematocrit 39.6 % (35.0-42.0); Hemoglobin 13.1 g/dL (11.7-13.8); Immature Granulocyte Absolute 0.01 K/mm3 (0.00-0.00); Immature Granulocyte Percent A 0.2 % (0.0-0.0); Lymphocytes Percent Auto 41.7 % (18.0-42.0); Mean Corpuscular HGB Conc 33.1 g/dL (32-36); Mean Corpuscular Hemoglobin 29.2 pg (27.0-31.0); Mean Corpuscular Volume 88.4 fL (78.0-102.0); Mean Platelet Volume 10.5 fl (9.2-11.8); Monocytes Percent Auto 9.5 % (2.0-11.0); Neutrophils Absolute Auto 2.17 K/mm3 (1.70-7.20); Platelet Count Result 215 K/mm3 (150-420); Red Blood Count 4.48 M/mm3 (4.20-5.40); Red Cell Distribution Width 11.7 % (11.6-14.4); White Blood Count 5.3 K/mm3 (4.8-10.8)
[2024-03-29 08:48] LABS: Alanine Aminotransferase 30 U/L (14-59); Alkaline Phosphatase 98 U/L (46-116); Anion Gap 7 mmol/L (4-12); Aspartate Amino Transferase 21 U/L (15-37); Bilirubin,Total 0.4 mg/dL (0.00-1.00); Blood Urea Nitrogen 11 mg/dL (7-18); Calcium 9.2 mg/dL (8.5-10.1); Carbon Dioxide 31 mmol/L (21-32); Chloride 104 mmol/L (98-108); Cholesterol 219 mg/dL (0-200); Estimated Glomerular Filt Rate > 60; Glucose 95 mg/dL (70-99); HDL Direct 55 mg/dL (40-60); LDL Cholesterol Calculated 115 mg/dL (<130); Osmolality Calculated 293 mOsm/kg (285-295); Potassium 4.1 mmol/L (3.5-5.1); Sodium 142 mmol/L (136-145); Thyroid Stimulating Hormone 0.41 uIU/mL (0.36-3.74); Triglycerides 244 mg/dL (0-150)
[2024-03-31 02:04] LABS: Vitamin D 25 Hydroxy 38 ng/mL (30-100)
== END 2024-03-29 07:34 | disposition home or self-care (01) ==
LOC: CHSLAB 07:35
PROVIDERS: PCP Internal Medicine; Visit Provider Internal Medicine
DX: E55.9 Vitamin D deficiency, unspecified (principal); E78.5 Hyperlipidemia, unspecified; I10 Essential (primary) hypertension
CPT/HCPCS: 36415; 80053; 80061; 82306; 84443; 85025

== ENCOUNTER 2024-04-11 09:43 | Outpatient (CLI) | payer MEDICARE, SELFPAY ==
--- NOTE | ~2024-04-11 | CT_ITS ---
CT Scan of the Chest without Contrast: Clinical Indication: Lung cancer screening, nicotine dependence Technique: Contiguous sections were acquired throughout the chest without intravenous contrast. Dose reduction technique was used on this scan by utilizing automated exposure control and iterative recon struction technique. The dose-length product (DLP) was 58.51 mGy-cm. COMPARISON: 11/21/2022 Findings: There is no evidence of any significant mediastinal, hilar or axillary lymphadenopathy. The mediastin al soft tissues appear normal. There is no evidence of pleural or pericardial effusion. There are several 2 mm peripheral nodules in the right upper lobe. Stable large calcified right lower lobe granuloma. Stable small subpleural nodules in the right lower lobe. Stable 9 mm left lower lobe pulmonary nodule (axial image 79). Images through the upper abdomen reveal no abnormalities. Impression: Lung RADS 2: Benign appearance. 12 month follow-up screening CT advised. Reviewed, dictated and finalized at [facility]. RT MOLDING OPERATOR Impression: Lung RADS 2: Benign appearance. 12 month follow-up screening CT advised.
--- NOTE | ~2024-04-11 | US_ITS ---
EXAMINATION: US carotid duplex BI DATE: 04/11/2024 10:24 INDICATION: Dizziness when turning head to the left. TECHNIQUE: Grayscale, color Doppler, and pulsed Doppler images of the cervical carotid arteries were obtained. The degree of vessel stenosis is placed in one of the following categories: normal, <50%, 5 0-69%, >=70% but less than near-occlusion, near-occlusion, or total occlusion. Note that percent sten osis relative to normal distal artery lumen diameter is indirectly measured from velocity measurement s as described by Nolan, et al. Radiology 2003; 229:340-346. COMPARISON: None. FINDINGS: RIGHT: The right common carotid artery (CCA) peak systolic velocity (PSV) is 92 cm/s. The right internal car otid artery (ICA) PSV is 98 cm/s. The right ICA end-diastolic velocity (EDV) is 39 cm/s. The right IC A/CCA PSV ratio is 1.1. Grayscale and color Doppler images yield an estimate of <50% diameter reducti on from plaque in the ICA. There is antegrade flow in the right vertebral artery. LEFT: The left CCA PSV is 86 cm/s. The left ICA PSV is 106 cm/s. The left ICA EDV is 41 cm/s. The left ICA/ CCA PSV ratio is 1.2. Grayscale and color Doppler images yield an estimate of <50% diameter reduction from plaque in the ICA. There is antegrade flow in the left vertebral artery. IMPRESSION: 1. <50% stenosis in the right internal carotid artery. 2. <50% stenosis in the left internal carotid artery. Reviewed, dictated and finalized at location A. H CHECKER
== END 2024-04-11 09:44 | disposition home or self-care (01) ==
LOC: CHSIMG 09:46
PROVIDERS: PCP Internal Medicine; Visit Provider Internal Medicine
DX: Z12.2 Encounter for screening for malignant neoplasm of respiratory organs (principal); R42 Dizziness and giddiness; I65.23 Occlusion and stenosis of bilateral carotid arteries; Z87.891 Personal history of nicotine dependence
CPT/HCPCS: 71271; 93880

== ENCOUNTER 2024-08-10 16:17 | Outpatient (CLI) | payer MEDICARE, SELFPAY ==
--- NOTE | ~2024-08-10 | XR_ITS ---
HISTORY: L rib pain, chest pain- left anterior upper rib pain COMPARISON: None TECHNIQUE: 3 views of the left ribs were performed along with a PA and lateral view of the chest FINDINGS: No acute displaced fracture is appreciated. Bone mineralization is age-appropriate. The cardiomediastinal silhouette is unremarkable. The lungs are clear. IMPRESSION: No acute displaced left-sided rib fracture. The lungs are clear. Reviewed, dictated and finalized at location A. L BILLING CLERK
--- OUTSIDE RECORDS SUMMARY | 2024-08-10 17:40 | XMS_ITS | Clinical Summary ---
Author Organization [facility] Address [address] [place] [address] Care Team Providers Care Vocational Adviser Name Role Phone Torey Xiong MD Primary Care Provider [phone] James Ibanez MD Unavailable [phone] Allergies Active Allergy Reactions Criticality Noted Date Comments Ca Obhp-E3-Pddzzi-Inos-Silicon Rash Medium 11/06 Medications levothyroxine (SYNTHROID) 100 mcg tabletIndication s:hypothyroidism Take 1 tablet (100 mcg total) by mouth kitchen and counter worker before breakfast 3 Active pravastatin (PRAVACHOL) 10 mg tabletIndication s:hyperlipidemia Take 1 tablet (10 mg total) by mouth every morning 3 Active estradioL (ESTRACE) 1 mg tabletIndication s:hormone replacement Take 1 tablet (1 mg total) by mouth every morning 3 Active losartan (COZAAR) 25 mg tabletIndication s:hypertension Take 1 tablet (25 mg total) by mouth every morning 3 Active cholecalciferol, vitamin D3, (VITAMIN D3 ORAL)Indications :supplement Take 2,000 Units by mouth every morning Active vitamin E 400 unit capsuleIndicatio ns:supplement Take 1 capsule (400 Units total) by mouth every morning Active ascorbic acid (VITAMIN C ORAL)Indications :supplement Take 500 mg by mouth every morning Active magnesium oxide (MAG-OX) 250 mg (150.8 mg elemental) tabletIndication s:hypomagnesemia Take 1 tablet (250 mg total) by mouth every morning Active UNABLE TO FINDIndications: arthritis Place under the tongue every morning Med Name: CBD 50mg/ml- .75 ml Active erythromycin (ILOTYCIN) ophthalmic ointment Place on incisions three times per day and in operative eye as needed. 3.5 g 3 3 Active Active Problems Problem Noted Date Diagnosed Date Dermatochalasis of both upper eyelids 01/19/2023 Loss of peripheral visual field, bilateral 01/19 Ptosis of eyelid 11/06/2022 Immunizations Immunization Administration Dates Next Due Influenza, Quadrivalent, Hig h Dose, Preservative Free, Intrr 04/03/2021 Pneumococcal Conjugate Pcv20 12/06/2021 ZOSTER LIVE 01/03/2015 Surgical History Surgery Date Site/Laterality Comments SECTION 02/21/1981 NERVE SURGERY 06/08/2008 - 06/07/2009 Left elbow COLONOSCOPY last one 2020 BIOPSY 06/08/2021 - 06/07/2022 stomach CHOLECYSTECTOMY 06/08/2020 - 06/07/2021 MANDIBLE FRACTURE SURGERY 06/08/1979 - 06/07/1980 Medical History Medical History Date Comments Hypertension Hypothyroidism Family History Medical History Relation Name Comments Anesthesia problems Neg Hx Relation Name Status Comments Father Mother Social History Tobacco Use Types Packs/Day Years Used Date Smoking Tobacco: Former Cigarettes 0.8 41 1 972 - 2013 Vaping 2012 - 2013 Passive Smoke Exposure: Never Smokeless Tobacco: Never Tobacco Cessation:Counseling Given: Not Answered Comments:Vaped for 6 months in order to stop smoking cigarettes. AUDIT-C Answer Date Recorded Q1: How often do you have a drink containing alcohol? Never 03/23/2023 Q2: How many drinks containi ng alcohol do you have on a typical day when you are drinking? Patient does not drink Q3: How often do you have si x or more drinks on one occasion? Never 03/23/2023 Personal Safety Answer Date Recorded Have you ever been in or are you currently in a harmful physical or emotional relationship or is someone making you feel afraid or unsafe? 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 Gender Identity Female 09/15/2023 1:31 PM CDT Sexual Orientation Straight 09/15/2023 1: 31 PM CDT Obstetrics History Last Filed Vital Signs Vital Sign Reading Time Taken Comments Blood Pressure 166/77 03/23/2023 2:53 PM CDT Pulse 60 03/23/2023 2:53 PM CDT Temperature 36.1 C (97 F) 03/23/2023 2:20 PM CDT Respiratory Rate 18 03/23/2023 2:50 PM CDT Oxygen Saturation 100% 03/23/2023 2:53 PM CDT Inhaled Oxygen Concentration - - Weight 63.4 kg (139 lb 12.8 oz) 023 12:02 PM CDT Height 152.4 cm (5') 03/23/2023 12:02 PM CDT Body Mass Index 27.3 03/23/2023 12:02 PM CDT Plan of Treatment Health Maintenance Due Date Last Done Comments Breast Cancer Screening-Mammogram 1954 Colon Cancer Screening-Colonoscopy 1954 Depression Screening 1954 Hepatitis C Screening 1954 Osteoporosis Screening-Bone Density Scan 1954 DTaP/Tdap/Td Vaccine (1 - Tdap) 1965 Hepatitis B Screening 1972 Lung Cancer Screening 2004 Zoster Vaccine (2 of 3) 02/28/2015 01/03/2015 Well Visit 65+ 09/28/2019 Covid-19 Vaccine (5 - 2023-2 5 season) 2024 03/07/2022, 04/03/2021, 09/16/2020, Additional history exists Influenza Vaccine (#1) 2024 02/25/2023, 2020 Fall Risk Assessment 03/23/2024 03/23/2023 Pneumococcal vaccine 65+ Completed 12/06/2021 Insurance AETNA MEDICARE AETNA MEDICARE Care Teams Vocational Adviser Relationship Specialty Start Date End Date Torey Xiong MD PCP - General Internal Medicine 03/05/22 James Ibanez MD [address] DEPT OPHTHALMOLOGY, [address] [address] Surgeon Ophthalmology 03/23/23
--- OUTSIDE RECORDS SUMMARY | 2024-08-10 17:40 | XMS_ITS | Clinical Summary ---
Author Organization [facility] Address [address] [place] [address] Care Team Providers Care Seismograph Observer Name Role Phone Torey Xiong MD Primary Care Provider Allergies Active Allergy Reactions Criticality Noted Date Comments Calcium Carbonate-Vitamin D Rash Medium 11/07/19 23 Drug before DEXA scans Medications estradiol (ESTRACE) 1 MG tablet Take 1 tablet (1 mg total) by mouth daily. 10/06/2022 Active levothyroxine (SYNTHROID) 100 MCG tablet Take 1 tablet (100 mcg total) by mouth daily. Active losartan (COZAAR) 25 MG tablet Take 1 tablet (25 mg total) by mouth daily. 11/11/2022 Active pravastatin (PRAVACHOL) 10 MG tablet Take 1 tablet (10 mg total) by mouth daily. 10/06/2022 Active vitamin D2, ergocalciferol, (DRISDOL) 1.25 mg capsule Take 1 capsule (1.25 mg total) by mouth. Active Family History Medical History Relation Comments No Known Problems Brother 1 No Known Problems Brother 2 No Known Problems Brother 3 No Known Problems Sister Relation Status Comments Brother 1 Alive Brother 2 Alive Brother 3 Alive Father Mother Sister Alive Social History Tobacco Use Types Packs/Day Years Used Date Smoking Tobacco: Former Cigarettes 0.5 40 1 973 - 2013 Smokeless Tobacco: Never Alcohol Use Standard Drinks/Week Comments Not Currently 0 (1 standard drink = 0.6 oz pur e alcohol) Comments Unknown Sex and Gender Information Value Date Recorded Sex Assigned at Not on file Legal Sex Female 5:58 PM CDT Gender Identity Not on file Sexual Orientation Not on file Last Filed Vital Signs Vital Sign Reading Time Taken Comments Blood Pressure - - Pulse - - Temperature - - Respiratory Rate - - Oxygen Saturation - - Inhaled Oxygen Concentration - - Weight 61.2 kg (135 lb) 12/16/2022 11:23 AM CDT Height 152.4 cm (5') 12/16/2022 11:23 AM CDT Body Mass Index 26.37 12/16/2022 11:23 AM CDT Plan of Treatment Health Maintenance Due Date Last Done Comments Colorectal Cancer Screening Colonoscopy (10 Years) 1954 Hepatitis C 1972 DTaP, Tdap and Td Vaccines (1 - Tdap) 1973 Mammogram Screening 1994 Zoster Vaccines (2 of 3) 02/28/2015 01/03/2015 Annual Medicare Wellness Visit 09/28/2019 Dexa Scan (General) 09/28/2019 COVID-19 Vaccine ( season) 2024 03/07/2022, 04/03/2021, 09/16/2020, Additional history exists Influenza Adult (#1) 2024 RSV Immunization or 60+ Years (1 - 1-dose 75+ series) 2029 Pneumococcal Vaccine: 65+ Years Completed 12/06/2021 Meningococcal B Vaccine Aged Out No l onger eligible based on patient's age to complete this topic Meningococcal Vaccine Aged Out No nathalie keagan eligible based on patient's age to complete this topic RSV Immunizations Under 20 Months Aged Out No longer eligible based on patient's age to complete this topic Insurance AETNA Care Teams Seismograph Observer Relationship Specialty Start Date End Date Torey Xiong MD [address] [place] [address] PCP - General INTERNAL MEDICINE 07/24/22
--- OUTSIDE RECORDS SUMMARY | 2024-08-10 17:40 | XMS_ITS | Referral Summary ---
Author Organization [facility] Address [address] [place] [address] Care Team Providers Care Cvir Tech Name Role Phone Torey Xiong MD Primary Care Provider [phone] James Ibanez MD Unavailable [phone] Allergies Active Allergy Reactions Criticality Noted Date Comments Ca Gcsx-D5-Zlsbro-Inos-Silicon Rash Medium 11/06 Medications levothyroxine (SYNTHROID) 100 mcg tabletIndication s:hypothyroidism Take 1 tablet (100 mcg total) by mouth activities director before breakfast 3 Active pravastatin (PRAVACHOL) 10 [...] operative eye as needed. 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
--- OUTSIDE RECORDS SUMMARY | 2024-08-10 17:40 | XMS_ITS | Data Portability ---
Author Organization [facility], [address] [place] [address] ([place]) Address [address] [place] [address] Care Team Providers Care Specialty Therapist Name Role Phone SABI REA Primary Care Provider [phone] JESUS PEPE Legal Recovery Specialist [phone] Assessment Encounter Date Assessment Date Assessment LastModified by Organization Details LastModified Time 03/17/2024 03/17/2024 68 year-old with history of osteoporosis DEXA scan November 2021: AP spine -2.6, femoral neck -3.9, total hip -2.5, femur neck -3.2, total hip -2.5. Patient has history of vertebral compression fracture which was documented in 2017 in the medical records (L3 L5 vertebral fracture fracture.) Patient thinks she sustained this 25 to 30 years ago when she fell from a horse. Risk factors for osteoporosis: Age and postmenopausal status. Work-up for secondary cause of osteoporosis 17 Jul 2022 #Celiac panel is negative #Normal free light chains. Normal serum protein electrophoresis #Normal PTH. Calcium #Vitamin D level is low at 20 Patient received 8 weeks course of ergocalciferol. *We will recheck 25-hydroxy vitamin D level and will modify the dose of vitamin replacement accordingly. Normal 24-hour urinary cortisol of 15. Slight elevated 24-hour urine calcium of 260. I again discussed with the patient regarding best treatment options and the nuances of treatment. The side effects of the medications are rare, and the benefits outweigh the risks. #Option 1 Patient does not want to retry bisphosphonates given her previous adverse effects from bisphosphonates before #Option 2 Prolia. Patient will need to be transition to bisphosphonate after conclusion of Prolia treatment. #Option 3 Forteo. This may not be very effective at improving hip bone bone density #Option 4 Evenity. Might be preferable given the severity of osteoporosis Patient for now wants to continue on the conservative monitoring. Patient had a bone density done at [facility] recently. Patient report was available after patient left the clinic. Bone density scan August 2023. AP lumbar spine T-score -2.1, femoral neck T-score -3.2, total hip T-score -2. Right femoral neck T-score -3.3 right total hip -2.3. Bone density appears to be improving but still has persistent osteoporosis at the femoral neck. Patient understands the high risk of fractures and wishes to proceed with conservative management Patient will need regular dental exams, and should notify dentist prior to having any dental work that you are taking a bisphosphonate. Advised on diet rich in fruits/vegetables and low fat dairy products that include adequate amounts total calcium intake (1000 mg per day for men 50-70; 1200 mg per day for women 51 and older, men 71 and older.) Recommended regular weight bearing and muscle strengthening exercises to improve agility, strength, posture, balance and reduce the risk of falls and fractures. Will check 25-hydroxy vitamin D level. [email or web address] Not available 03/17/2024 13:57:01 Plan of Treatment Reminders Order Date Submit Date Provider Last Modified By Organization Details Last Modified Time Details Appointments None recorded. Lab vitamin D, 25-hydrox y, total, serum [facility], [address] [place] [address], [address], 17:57:49 Referral None recorded. Procedures None recorded. Surgeries None recorded. Imaging None recorded. Medication Orders None recorded. Patient TargetsNo targets recorded. Patient InstructionsNo instructions recorded. Reason for Referral None Reported. Results Created Date Observation Date Name Description Value Unit Range Abnormal Flag Note LastModifiedBy Organization Detail LastModifiedTime 03/17/20 24 03/17/2024 vitam in D, 25-hy droxy , total , serum vitamin D 25-hydroxy totl 41.0 NG/mL 30.0-8 0.0 Less than 20 ng/mL Defic iency 20-29 ng/mL Insuf ficie ncy 30-80 ng/mL Optim al Great er than 80 ng/mL Possi ble toxic ity Not Available [facility] [address] [place] [address], [address], 03/17/2024 17:57:48 03/17/20 24 11/09/2023 bone densi ty No observ ation record ed. IT[facility] Not Available 2023 13:52:56 Result Notes None recorded. Problems Name Problem SNOMED Code Status Onset Date Resolution Date Notes Provider Name and Address Organization Details Recorded Time Osteoporosis 24433489 Active 2023 Leann Perez [facility] 4 11:01:02 Postmenopausa l osteoporosis 482491951 Active 2023 Jesus devlin MD [address] [place] [address], [phone] , [facility] 4 11:01:43 Vitamin D deficiency 67390494 Active 2023 Jesus devlin MD [address] [place] [address], [phone] , [facility] 4 11:02:10 Problem Notes None recorded. Procedures Surgical History None recorded. Imaging Results Imaging Date Name Status LastModified by Organiz ation Details LastModified Time 11/09/2023 bone density completed [facility] Information not available 03/17/2024 13:52:56 Procedure Notes None recorded. Medical Equipment None Reported. Allergies Allergen ID Allergen Name Allergen Category Reaction Reaction Severity Criticality Documentation Date Start Date Code Code System Note Provider Name and Address Organization Details Recorded Time 8238800 Boniva medicatio n Not available Not available Not available 07/08/20232022 09699 4 RxNorm Not Available Not Available Not Available Medications Name Sig Start Date Stop Date Status Note LastModified by Organization Details LastModified Time levothyroxine 100 mcg tablet TAKE 1 TABLET BY MOUTH ONCE DAILY active Not Available Not Available No t Available estradiol 1 mg tablet active Not Available Not Available No t Available pravastatin 10 mg tablet active Not Available Not Available Not Available erythromycin 5 mg/gram (0.5 %) eye ointment PLACE ON INCISIONS THREE TIMES PER DAY AND IN OPERATIVE EYE NEEDED. active Not Available Not Available No t Available losartan 25 mg tablet active Not Available Not Available No t Available Vitals Date Recorded Body weight Heart rate Systolic blood pressure Diastolic blood pressure Provider Name and Address Organization Details Last Updated DateTime 03/17/2024 06139.01 g 73 /min 124 mm[Hg] 60 mm[Hg] Liam [facility] 03/17/2024 10:38:47 Social History None recorded. Functional Status None recorded. Mental Status None recorded. Family History Nothing Reported. Medical History No medical history recorded. Gynecological HistoryNo gynecological history recorded. Obstetrics History GPAL:G 0 P 0 0 0 0 Past Encounters Encounter ID Performer Location Encounter Start Date Encounter Closed Date Diagnosis/Indication Diagnosis SNOMED-CT Code Diagnosis ICD10 Code Diagnosis Note [id number] Jesus devlin MD [facility] ([place]) [address] [place] [address] 03/17/2024 10:26:47 03/17/2024 13:06:33 Postmenopausal osteoporosis 696834643 M81.0 Vitamin D deficiency 347 09728 E55.9 Health Concerns Section Related Observation LastModified by Organization Detai ls LastModified Time None Recorded Concern Status LastModified by Organization Details LastModified Time None Recorded Advance Directives Directive None Recorded Payers Encounter Date Sequence Insurance Name Policy Number Policy Peña Covered Member ID Peña Member ID Guarantor Name 03/17/2024 1 [employer] (MEDICARE REPLACEMENT PPO) [id number] 1 Mago Leonard [id number] Mago Leonard Notes Date Note Type Note Provider Name and Address Organization Details Recorded Time text/html History of Present IllnessOsteoporosis follow-up. This is patient's second clinic visit with me. Initial consultation visit was about 6 weeks ago.DEXA scan November 2021: AP spine -2.6, femoral neck -3.9, total hip -2.5, femur neck -3.2, total hip -2.5.Patient was on risedronate, she experienced eye pain, dry eyes, gallbladder surgery while on Actonel. Boniva caused rash. She was also on a different bisphosphonate which cause dry eyes.Patient was recommended to have Prolia but she was concerned regarding potential side effects and has not taken this medication yet. Katalinae nt had history of hysterectomy and nephrectomy at the age of 41 and was on hormone replacement for more than 10 years he subsequently stopped but was restarted again few months ago. No history of thyroid disease no history of parathyroid disease. No history of seizure. No history of cancer. Mother has history of osteoporosis. ====Patient was found to have low vitamin D of 20 and was on 8 weeks course of ergocalciferol. After completion of ergocalciferol treatment she started taking vitamin D 2000 units daily. She felt a lot better while taking vitamin D replacement. She denies any recent falls or fractures.Patient discussed with her PCP regarding osteoporosis treatment options. For now she wants to continue vitamin D replacement and does not want to be on any medications. Patient denies any recent falls or fractures. She is currently on vitamin D 1000 and 2000 units on alternate days. Stable dental health. Jesus Pepe MD [address] [facility], [place], [address], [facility] 03/17/2024 13:57:18 OBGyn Episode No OBEpisode recorded.
== END 2024-08-10 16:18 | disposition home or self-care (01) ==
PROVIDERS: PCP Internal Medicine; Visit Provider Internal Medicine
DX: R07.81 Pleurodynia (principal); R07.9 Chest pain, unspecified
CPT/HCPCS: 71046; 71100

== ENCOUNTER 2024-10-05 06:54 | Outpatient (CLI) | payer MEDICARE, SELFPAY ==
--- OUTSIDE RECORDS SUMMARY | 2024-10-05 06:59 | XMS_ITS | Referral Summary ---
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
--- OUTSIDE RECORDS SUMMARY | 2024-10-05 06:59 | XMS_ITS | Clinical Summary ---
Author Organization [facility] Address [address] [place] [address] Care Team Providers Care Commercial Trailer Truck Driver Name Role Phone Torey Xiong MD Primary Care Provider [phone] Allergies Active Allergy Reactions Criticality Noted Date [...] 2024 03/07/2022, 04/03/2021, 09/16/2020, Additional history exists RSV Immunization or 60+ Years (1 - 1-dose 75+ series) 2029 Pneumococcal Vaccine: 50+ Years Completed 12/06/2021 Meningococcal B Vaccine Aged Out No l onger eligible based on patient's age to complete this topic Meningococcal Vaccine Aged Out No nathalie keagan eligible based on patient's age to complete this topic RSV Immunizations Under 20 Months Aged Out No longer eligible based on patient's age to complete this topic Insurance AETNA Care Teams Commercial Trailer Truck Driver Relationship Specialty Start Date End Date Torey Xiong MD [address] [place] [address] PCP - General INTERNAL MEDICINE 07/24/22
--- OUTSIDE RECORDS SUMMARY | 2024-10-05 06:59 | XMS_ITS | Clinical Summary ---
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
--- OUTSIDE RECORDS SUMMARY | 2024-10-05 06:59 | XMS_ITS | Data Portability ---
Author Organization [facility], [address] [place] [address] ([place]) Address [address] [place] [address] Care Team Providers Care Reliability Specialist Name Role Phone SABI REA Primary Care Provider JESUS PEPE Activity Manager [phone] Assessment Encounter Date Assessment Date Assessment LastModified [...] Patient had a bone density done at [facility] recently. Patient report was available after patient [...] Lab vitamin D, 25-hydrox y, total, serum [facility], [address] [place] [address], [address], 17:57:49 Referral None recorded. Procedures None recorded. [...] toxic ity Not Available [facility] [address] [place] [address], [address], 03/17/2024 17:57:48 03/17/20 24 11/09/2023 bone densi ty No observ ation record ed. ITALO Not Available 2023 13:52:56 Result Notes None recorded. Problems Name Problem SNOMED Code Status Onset Date Resolution Date Notes Provider Name and Address Organization Details Recorded Time Osteoporosis 10166802 Active 2023 Leann Perez [facility] 4 11:01:02 Postmenopausa l osteoporosis 934301128 Active 2023 Jesus devlin MD [address] [place] [address], [address] , [facility] 4 11:01:43 Vitamin D deficiency 34424997 Active 2023 Jesus devlin MD [address] [place] [address], [phone] , [facility] 4 11:02:10 Problem Notes None recorded. Procedures [...] Name and Address Organization Details Recorded Time 3076313 [facility] n Not available Not available Not available 07/08/20232022 03504 4 RxNorm Not Available Not Available Not [...] Address Organization Details Last Updated DateTime 03/17/2024 15541.01 g 73 /min 124 mm[Hg] 60 mm[Hg] Liam [facility] 03/17/2024 10:38:47 Social History None recorded. Functional Status None recorded. Mental Status None recorded. Family History Nothing Reported. Medical History No medical history recorded. Gynecological HistoryNo gynecological history recorded. Obstetrics History GPAL:G 0 P 0 0 0 0 Past Encounters Encounter ID Performer Location Encounter Start Date Encounter Closed Date Diagnosis/Indication Diagnosis SNOMED-CT Code Diagnosis ICD10 Code Diagnosis Note [id number] Jesus devlin MD [facility] ([place]) [address] [place] [address] 03/17/2024 10:26:47 03/17/2024 13:06:33 Postmenopausal osteoporosis 515760025 M81.0 Vitamin D deficiency 347 92658 E55.9 Health Concerns Section Related Observation LastModified by Organization Detai ls LastModified Time None Recorded Concern Status LastModified by Organization Details LastModified Time None Recorded Advance Directives Directive None Recorded Payers Encounter Date Sequence Insurance Name Policy Number Policy Peña Covered Member ID Peña Member ID Guarantor Name 03/17/2024 1 [employer] (MEDICARE REPLACEMENT PPO) [id number] Mago Leonard [id number] Mago Leonard Notes Date Note Type Note [...] dental health. Jesus Pepe MD [address] [facility], [place], [address], [facility] 03/17/2024 13:57:18 OBGyn Episode No OBEpisode recorded.
[2024-10-05 08:05] LABS: Basophils Absolute Auto 0.07 K/mm3 (0.00-0.10); Basophils Percent Auto 1.3 % (0.0-1.0); Eosinophils Absolute Auto 0.33 K/mm3 (0.02-0.50); Hemoglobin 12.8 g/dL (11.7-13.8); Immature Granulocyte Absolute 0.03 K/mm3 (0.00-0.00); Immature Granulocyte Percent A 0.5 % (0.0-0.0); Lymphocytes Absolute Auto 2.33 K/mm3 (1.10-4.50); Lymphocytes Percent Auto 42.6 % (18.0-42.0); Mean Corpuscular HGB Conc 32.8 g/dL (32-36); Mean Corpuscular Hemoglobin 29.1 pg (27.0-31.0); Mean Corpuscular Volume 88.6 fL (78.0-102.0); Mean Platelet Volume 10.8 fl (9.2-11.8); Monocytes Absolute Auto 0.49 K/mm3 (0.10-0.90); Neutrophils Absolute Auto 2.22 K/mm3 (1.70-7.20); Neutrophils Percent Auto 40.6 % (50.0-70.0); Platelet Count Result 242 K/mm3 (150-420); Red Cell Distribution Width 11.6 % (11.6-14.4); White Blood Count 5.5 K/mm3 (4.8-10.8)
[2024-10-05 08:09] LABS: Add Urine Microscopic? NO; Appearance Urine Clear (Clear); Bilirubin Urine Negative (Negative); Blood Urine Negative (Negative); Color Urine Yellow (Yellow); Glucose Urine UA Negative (Negative); Ketones Urine Negative (Negative); Leukocyte Esterase Ur Negative (Negative); Nitrate Urine Negative (Negative); Protein Urine Negative (Negative); Urobilinogen Urine 0.2 mg/dL (0.2-1.0)
[2024-10-05 10:33] LABS: Alanine Aminotransferase 21 U/L (14-59); Alkaline Phosphatase 109 U/L (46-116); Anion Gap 12 mmol/L (4-12); Aspartate Amino Transferase 19 U/L (15-37); Bilirubin,Total 0.4 mg/dL (0.00-1.00); Blood Urea Nitrogen 11 mg/dL (7-18); Calcium 8.9 mg/dL (8.5-10.1); Carbon Dioxide 30 mmol/L (21-32); Chloride 106 mmol/L (98-108); Cholesterol 203 mg/dL (0-200); Estimated Glomerular Filt Rate > 60; Glucose 95 mg/dL (70-99); HDL Direct 57 mg/dL (40-60); LDL Cholesterol Calculated 109 mg/dL (<130); Osmolality Calculated 305 mOsm/kg (285-295); Potassium 3.9 mmol/L (3.5-5.1); Sodium 148 mmol/L (136-145); Thyroid Stimulating Hormone 0.68 uIU/mL (0.36-3.74); Triglycerides 184 mg/dL (0-150)
[2024-10-07 07:53] LABS: Vitamin D 25 Hydroxy 41 ng/mL (30-100)
== END 2024-10-05 06:55 | disposition home or self-care (01) ==
LOC: CHSLAB 06:57
PROVIDERS: PCP Internal Medicine; Visit Provider Internal Medicine
DX: I10 Essential (primary) hypertension (principal); E78.5 Hyperlipidemia, unspecified; E03.9 Hypothyroidism, unspecified; E55.9 Vitamin D deficiency, unspecified
CPT/HCPCS: 36415; 80053; 80061; 81003; 82306; 84443; 85025

== ENCOUNTER 2024-12-30 08:13 | Outpatient (CLI) | payer MEDICARE, SELFPAY ==
--- NOTE | ~2024-12-30 | MM_ITS ---
EXAMINATION: MM screening tung BI w chilo HISTORY: Screening TECHNIQUE: Craniocaudal and mediolateral oblique 3-D tomosynthesis images were obtained and synthetic 2-D images were generated. CAD analysis was submitted and interpreted. COMPARISON: Comparison to multiple prior studies sequentially, with oldest reviewed study dated 02/23. BREAST PARENCHYMAL COMPOSITION: Not dense: There are scattered areas of fibroglandular density. FINDINGS: There is no evidence of suspicious mass, calcification, or architectural distortion to sugg est malignancy in either breast. There has been no suspicious interval change. IMPRESSION: 1. No mammographic evidence of malignancy. 2. Recommend routine screening mammography in one year. BI-RADS Category 1: Negative Reviewed, dictated and finalized at location A.
--- OUTSIDE RECORDS SUMMARY | 2024-12-30 08:17 | XMS_ITS | Data Portability ---
Author Organization [facility], [address] [place] [address] [place]rology ([place]) Address [address] [place] [address] Care Team Providers Care French Professor Name Role Phone SABI REA Primary Care Provider JESUS PEPE Corporation Officer [phone] Assessment Encounter Date Assessment Date Assessment LastModified [...] Patient had a bone density done at [facility] recently. Patient report was available after patient [...] Lab vitamin D, 25-hydrox y, total, serum [facility], [address] [place] [address], [address], 17:57:49 Referral None recorded. Procedures None recorded. [...] Available [facility] [address], [address], 03/17/2024 17:57:48 03/17/20 24 11/09/2023 bone densi ty No observ ation record ed. ITALO Not Available 2023 13:52:56 Result Notes None recorded. Problems Name Problem SNOMED Code Status Onset Date Resolution Date Notes Provider Name and Address Organization Details Recorded Time Osteoporosis 38495071 Active 2023 Leann Ana [facility] 4 11:01:02 Postmenopausa l osteoporosis 709597953 Active 2023 Jesus devlin MD [address] [place] [address], [address] , [facility] 4 11:01:43 Vitamin D deficiency 18157104 Active 2023 Jesus devlin MD [address] [place] [address], [address] , [facility] 4 11:02:10 Problem Notes None recorded. Medical Equipment None Reported. Allergies Allergen ID Allergen Name Allergen Category Reaction Reaction Severity Criticality Documentation Date Start Date Code Code System Note Provider Name and Address Organization Details Recorded Time 6552366 [facility] n Not available Not available Not available 07/08/20232022 65334 4 RxNorm Not Available [facility] 4 04:39:04 Medications Name Sig Start Date Stop Date [...] Date Recorded Body weight Heart rate Systolic And Diastolic Provider Name and Address Organization Details Last Updated DateTime 03/17/2024 71748.01 g 73 /min 124/60 mm[Hg] Liam Herron [facility] 03/17/2024 10:38:47 Social History None recorded. Functional Status None recorded. Mental Status None recorded. Family History Nothing Reported. Medical History No medical history recorded. Gynecological HistoryNo gynecological history recorded. Obstetrics History GPAL:G 0 P 0 0 0 0 Past Encounters Encounter ID Performer Location Encounter Start Date Encounter Closed Date Diagnosis/Indication Diagnosis SNOMED-CT Code Diagnosis ICD10 Code Diagnosis Note [id number] Jesus devlin MD [facility] ([place]) [address] [place] [address] 03/17/2024 10:26:47 03/17/2024 13:06:33 Postmenopausal osteoporosis 559198601 M81.0 Vitamin D deficiency 347 69619 E55.9 Health Concerns Section Related Observation LastModified by Organization Detai ls LastModified Time None Recorded Concern Status LastModified by Organization Details LastModified Time None Recorded Advance Directives Directive None Recorded Payers Insurance Date Sequence Insurance Name Policy Number Policy Peña Covered Member ID Peña Member ID Guarantor Name 03/20/2024 1 [employer] (MEDICARE REPLACEMENT/ ADVANTAGE - PPO) [id number] Mago Leonard [id number] Mago Leonard Notes Date Note Type Note [...] and has not taken this medication yet. Patie nt had history of hysterectomy and nephrectomy [...] dental health. Jesus Pepe MD [address] [place] [address], [phone], [facility] 03/17/2024 13:57:18 OBGyn Episode No OBEpisode recorded.
--- OUTSIDE RECORDS SUMMARY | 2024-12-30 08:17 | XMS_ITS | Clinical Summary ---
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
--- OUTSIDE RECORDS SUMMARY | 2024-12-30 08:17 | XMS_ITS | Referral Summary ---
Author Organization [facility] Address [address] [place] [address] Care Team Providers Care Migratory Worker Name Role Phone Torey Xiong MD Primary Care Provider [phone] James Ibanez MD Unavailable [phone] Allergies Active Allergy Reactions Criticality Noted Date Comments Ca Irgq-R8-Kidjqg-Inos-Silicon Rash Medium 11/06 Medications levothyroxine (SYNTHROID) 100 mcg tabletIndication s:hypothyroidism Take 1 tablet (100 mcg total) by mouth coach builder before breakfast 3 Active pravastatin (PRAVACHOL) 10 [...] on file Legal Sex Female 2:59 AM RN INTERVENTIONAL Gender Identity Female 09/15/2023 1:31 PM CDT [...] Insurance AET MEDICARE AET MEDICARE Care Teams Migratory Worker Relationship Specialty Start Date End Date Torey Xiong MD PCP - General Internal Medicine 03/05/22 James Ibanez MD [address] DEPT OPHTHALMOLOGY, [address] [address] Surgeon Ophthalmology 03/23/23
--- OUTSIDE RECORDS SUMMARY | 2024-12-30 08:17 | XMS_ITS | Clinical Summary ---
Author Organization [facility] Address [address] [place] [address] Care Team Providers Care Splitter Operator Name Role Phone Torey Xiong MD Primary Care Provider [phone] Allergies Active Allergy Reactions Criticality Noted Date [...] complete this topic Insurance AETNA Care Teams Splitter Operator Relationship Specialty Start Date End Date Torey Xiong MD [address] [place] [address] PCP - General INTERNAL MEDICINE 07/24/22
== END 2024-12-30 08:14 | disposition home or self-care (01) ==
LOC: CHSIMG 08:14
PROVIDERS: PCP Internal Medicine; Visit Provider Internal Medicine
DX: Z12.31 Encounter for screening mammogram for malignant neoplasm of breast (principal)
CPT/HCPCS: 77063; 77067

== ENCOUNTER 2025-04-21 07:08 | Outpatient (CLI) | payer MEDICARE, SELFPAY ==
--- OUTSIDE RECORDS SUMMARY | 2025-04-21 07:15 | XMS_ITS | Clinical Summary ---
Author Organization [facility] Address [address] [place] [address] Care Team Providers Care Car Oiler Name Role Phone Torey Xiong MD Primary [...] Scan (General) 09/28/2019 COVID-19 Vaccine ( season) 2025 03/07/2022, 04/03/2021, 09/16/2020, Additional history exists Influenza Adult (#1) 2025 RSV Immunization or 60+ Years (1 - 1-dose 75+ series) 2029 Pneumococcal Vaccine: 50+ Years Completed 12/06/2021 Hepatitis A Vaccines Aged Out No long er eligible based on patient's age to complete this topic Meningococcal B Vaccine Aged Out No l onger eligible based on patient's age to complete this topic Meningococcal Vaccine Aged Out No nathalie keagan eligible based on patient's age to complete this topic RSV Immunizations Under 20 Months Aged Out No longer eligible based on patient's age to complete this topic Insurance AETNA MEDICARE Care Teams Car Oiler Relationship Specialty Start Date End Date Torey Xiong MD [address] [place] [address] PCP - General INTERNAL MEDICINE 07/24/22
[2025-04-21 07:38] LABS: Add Urine Microscopic? NO; Appearance Urine Clear (Clear); Glucose Urine UA Negative (Negative); Hematocrit 39.4 % (35.0-42.0); Hemoglobin 13.1 g/dL (11.7-13.8); Leukocyte Esterase Ur Negative LEU/UL (Negative); Mean Corpuscular HGB Conc 33.2 g/dL (32-36); Mean Corpuscular Hemoglobin 29.6 pg (27.0-31.0); Mean Corpuscular Volume 88.9 fL (78.0-102.0); Nitrate Urine Negative (Negative); Platelet Count Result 248 K/mm3 (150-420); Red Blood Count 4.43 M/mm3 (4.20-5.40); Specific Grav Ur 1.015 (1.010-1.020); White Blood Count 6.4 K/mm3 (4.8-10.8)
[2025-04-21 08:34] LABS: Alanine Aminotransferase 18 U/L (6-35); Albumin Level 4.8 g/dL (3.5-5.1); Alkaline Phosphatase 91 U/L (38-126); Anion Gap 8 mmol/L (4-12); Aspartate Amino Transferase 33 U/L (14-36); Blood Urea Nitrogen 9 mg/dL (7-17); Calcium 9.6 mg/dL (8.4-10.2); Carbon Dioxide 30 mmol/L (22-30); Chloride 104 mmol/L (98-107); Cholesterol 229 mg/dL (0-200); Estimated Glomerular Filt Rate > 60; Glucose 95 mg/dL (65-110); HDL Direct 59 mg/dL; Osmolality Calculated 292 mOsm/kg (285-295); Potassium 4.7 mmol/L (3.4-5.0); Sodium 142 mmol/L (137-145); Total Protein 7.3 g/dL (6.3-8.2); Triglycerides 266 mg/dL (<150)
[2025-04-21 09:02] LABS: Thyroid Stimulating Hormone 0.934 uIU/mL (0.465-4.680)
[2025-04-25 13:51] LABS: Bilirubin,Total 0.4 mg/dL (0.2-1.3)
== END 2025-04-21 07:09 | disposition home or self-care (01) ==
LOC: CHSLAB 07:10
PROVIDERS: PCP Internal Medicine; Visit Provider Internal Medicine
DX: E55.9 Vitamin D deficiency, unspecified (principal); E78.5 Hyperlipidemia, unspecified; N39.0 Urinary tract infection, site not specified; E03.9 Hypothyroidism, unspecified; I10 Essential (primary) hypertension
CPT/HCPCS: 36415; 80053; 80061; 81003; 82306; 84443; 85027